=== PATIENT | male | born 1955 | race Caucasian/White ===

== ENCOUNTER 2021-03-28 09:35 | Outpatient (CLI) | payer MEDICARE, SELFPAY ==
--- NOTE | ~2021-03-28 | CT_ITS ---
EXAMINATION: CT lung screening DATE: 03/28/2021 10:00 INDICATION: Personal history of tobacco dependence, current smoker with 100 pack year history TECHNIQUE: Computed tomography (CT) of the chest was performed without intravenous contrast. The dose -length product (DLP) was 118.44 mGy-cm. Automated exposure control and iterative reconstruction tech [employer] were employed. COMPARISON: None FINDINGS: There is mild emphysema. There is a 3 mm nodule of the right lung apex. The lungs are free of acute opacities. There is no pleural effusion or pneumothorax. Calcified pulmonary nodules and anu cified bilateral hilar lymph nodes are consistent with old granulomatous disease. No pathologically e nlarged thoracic lymph nodes are identified. The heart size is normal. Cholelithiasis is noted. There is moderate thoracic spondylosis. IMPRESSION: 1. Lung-RADS category 2: Benign appearance or behavior. Continue annual screening with noncontrast lo w-dose chest CT in 12 months. Reviewed, dictated and finalized at location A. IMPRESSION: 1. Lung-RADS category 2: Benign appearance or behavior. Continue annual screeni ng with noncontrast low-dose chest CT in 12 months.
== END 2021-03-28 09:36 | disposition home or self-care (01) ==
LOC: CHSIMG 09:38
PROVIDERS: PCP Family Medicine; Visit Provider Family Medicine
DX: Z12.2 Encounter for screening for malignant neoplasm of respiratory organs (principal); Z87.891 Personal history of nicotine dependence
CPT/HCPCS: 71271

== ENCOUNTER 2021-11-17 09:02 | Observation (INO) | payer MEDICARE, SELFPAY ==
--- NOTE | ~2021-11-17 | XR_ITS ---
EXAMINATION: XR chest 1V portable DATE: 11/17/2021 11:23 INDICATION: Atrial fibrillation. TECHNIQUE: A single frontal view of the chest was obtained on 2 radiographs. COMPARISON: Chest CT 03/28/2021 FINDINGS: The chest demonstrates clear lungs without pneumonia, pleural effusion, or pneumothorax. Th e heart size is normal. An electronic device overlies the left chest. IMPRESSION: 1. No acute cardiopulmonary disease. Reviewed, dictated and finalized at location A.
[2021-11-17 09:28] VITALS: BP 145/47; PULSE 68; RESP 20; TEMP 36.7; O2SAT 98
--- NOTE | 2021-11-17 09:31 | ECG_ITS ---
Measurements Intervals [place] Rate: 69 P: 33 MT: 129 QRS: -32 QRSD: 89 T: 110 QT: 456 QTc: 491 Interpretive Statements SINUS RHYTHM WITH SINUS ARRHYTHMIA LEFT AXIS DEVIATION [QRS AXIS < -30] MODERATE ST AND T-WAVE ABNORMALITY, CONSIDER ANTEROLATERAL ISCHEMIA [-0.1+ mV T-WAVE IN V3-V6] ABNORMAL ECG NO PREVIOUS ECG AVAILABLE FOR COMPARISON Electronically Signed On 11-17-2021 12:18:31 CDT by Cuate Rivers M.D.
--- NOTE | 2021-11-17 09:34 | ED.WEAKNESS ---
HPI - Weakness General Chief complaint: Weakness Stated complaint: loss of appetite, nausea, vomiting Time Seen by Provider: 11/17/21 09:34 Source: patient and family Mode of arrival: ambulatory History of Present Illness HPI Narrative: this is a 66 with history recent CVA with right-sided hemiparesis was recently discharged from rehab on November 12 of this year, the patient during his stay was apparently having a decreased appetite secondary to altered taste to food, and currently has had some nausea vomiting, patient with history of depression/diabetes. Currently there is no fever chills he denies any chest pain or shortness of breath no dysuria or hematuria no flank pain your MD Complaint: generalized weakness Onset (ago): day(s) Duration: constant Severity: mild Associated symptoms: nausea/vomiting Related Data Allergies Allergy/AdvReac Type Severity Reaction Status Date / Time No Known Allergies Allergy Verified 11/17/21 09:42 Review of Systems Review of Systems: All systems reviewed & are unremarkable except as noted in HPI and below 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 Patient was independent prior to this admit Smoking status: Heavy tobacco smoker Additional smoking assessment comments: quit after stroke Exam Const: General: no acute distress Orientation/consciousness: patient oriented x3 HENMT: Head: normal to inspection Eyes: Conjunctivae: conjunctivae normal Pupils: Equal, round and reactive pupils present EOM: EOMs intact bilaterally Direct Ophthalmoscopy: no photophobia Neck: Neck: normal visual inspection, no lymphadenopathy and no meningeal signs Chest: Chest palpation & inspection: normal inspection of the chest Resp: Effort & Inspection: normal respiratory effort Auscultation: clear to auscultation bilaterally Cardio: Rate: regular rate Rhythm: regular rhythm GI: GI Palp: Yes Soft to palpation Percussion: Yes normal to percussion Urinary Catheter: Urinary Catheter: patent and draining Back/Spine/Pelvis: Back: no CVA tenderness Skin: General skin exam: normal color Rashes: no rashes Neuro: General: patient oriented x3 and no meningeal signs Speech: normal speech Other: right-sided hemiparesis Psych: Mental Status: mental status grossly normal Affect: normal affect Course Course Emergency Course: here today for a decreased appetite patient states that he has had this decreased appetite since he was in neuro rehab, has few episodes of nausea with some some vomiting currently labs reviewed with patient and family, received IV access and receive IV Zofran and his appetite has improved. after review of his CMP his creatinine had increased from 1.5 to 2.48 and serum sodium currently is 132. Discuss this with family and advised admission for observation. Family was in agreement. Critical Care Time Critical Care Time Critical Care Time: No Discharge Plan Discharge Clinical Impression: Acute hyponatremia, Acute kidney injury superimposed on chronic kidney disease Patient Disposition: [facility] Additional Instructions: disposition acute hospital Impression hyponatremia /acute on chronic renal failure condition guarded Prescriptions: No Action atorvastatin 80 mg Tablet 80 mg PO HS Qty: 30 RF: 0 aspirin [Children's Aspirin] 81 mg Tablet,Chewable 81 mg PO DAILY@0800 Qty: 0 RF: 0 bumetanide 1 mg Tablet 1 mg PO BID Qty: 60 RF: 0 carvedilol [Coreg] 12.5 mg Tablet 12.5 mg PO Q12HR Qty: 60 RF: 0 clopidogrel 75 mg Tablet 75 mg PO QAM Qty: 30 RF: 0 hydralazine 50 mg Tablet 50 mg PO Q8HR Qty:
[2021-11-17] MEDS: ONDANSETRON INJ 4 MG/2 ML VIAL IV PUSH (09:53)
[2021-11-17 09:57] LABS: Basophils Absolute Auto 0.08 K/mm3 (0.00-0.10); Basophils Percent Auto 0.6 % (0.0-1.0); Eosinophils Absolute Auto 0.09 K/mm3 (0.02-0.50); Eosinophils Percent Auto 0.7 % (1.0-6.0); Hematocrit 45.8 % (37.0-46.0); Hemoglobin 15.8 g/dL (12.4-15.3); Immature Granulocyte Absolute 0.07 K/mm3 (0.00-0.00); Immature Granulocyte Percent A 0.5 % (0.0-0.0); Lymphocytes Absolute Auto 1.84 K/mm3 (1.10-4.50); Mean Corpuscular HGB Conc 34.5 g/dL (32.0-36.0); Mean Corpuscular Hemoglobin 29.7 pg (27.0-31.0); Mean Corpuscular Volume 86.1 fL (78.0-102.0); Monocytes Absolute Auto 0.99 K/mm3 (0.10-0.90); Monocytes Percent Auto 7.6 % (2.0-11.0); Neutrophils Percent Auto 76.6 % (50.0-70.0); Platelet Count Result 452 K/mm3 (150-420); Red Blood Count 5.32 M/mm3 (4.70-6.10); Red Cell Distribution Width 12.4 % (11.6-14.4); White Blood Count 13.1 K/mm3 (4.8-10.8)
[2021-11-17 10:02] LABS: Add Urine Microscopic? YES; Appearance Urine Clear (Clear); Bilirubin Urine Negative (Negative); Blood Urine Negative (Negative); Color Urine Light Yellow (Yellow); Glucose Urine UA Negative (Negative); Ketones Urine Negative (Negative); Leukocyte Esterase Ur Trace (Negative); Nitrate Urine Negative (Negative); Protein Urine Negative (Negative); Urobilinogen Urine 0.2 mg/dL (0.2-1.0)
[2021-11-17 10:06] LABS: Bacteria Urine Trace /hpf; Mucus Urine Few /lpf; RBC Urine None seen /hpf (0-2); Squamous Epithelial Cell Urine Rare /hpf (Few); WBC Urine None seen /hpf (0-3)
[2021-11-17 10:16] LABS: Alanine Aminotransferase 44 U/L (16-63); Albumin Level 3.6 g/dL (3.4-5.0); Alkaline Phosphatase 69 U/L (46-116); Anion Gap 14 mmol/L (8-16); Aspartate Amino Transferase 34 U/L (15-37); Bilirubin,Total 0.7 mg/dL (0.00-1.00); Blood Urea Nitrogen 66 mg/dL (7-18); Calcium 9.2 mg/dL (8.5-10.1); Carbon Dioxide 23 mmol/L (21-32); Chloride 95 mmol/L (98-108); Estimated CRCL calculation 24 ml/min; Estimated Glomerular Filt Rate 26; Glucose 142 mg/dL (70-99); Lipase 215 U/L (73-393); Osmolality Calculated 295 mOsm/kg (285-295); Potassium 4.4 mmol/L (3.5-5.1); Sodium 132 mmol/L (136-145); Total Protein 7.5 g/dL (6.4-8.2)
[2021-11-17] MEDS: SODIUM CHLORIDE 0.9% IV 1,000 ML 150 ML IV CONT (10:54)
[2021-11-17 11:04] LABS: NT Pro B Type Natriuretic Pept 1103 pg/mL (0-125)
[2021-11-17 11:06] VITALS: BP 154/54; PULSE 63; RESP 20; TEMP 36.7; O2SAT 96
--- NOTE | 2021-11-17 11:11 | PC.NURSE ---
1100 PTS IV IS IN LEFT UPPER FOREARM 20G
[2021-11-17 11:35] VITALS: BP 149/53; PULSE 67; RESP 16; TEMP 36.7; O2SAT 97
[2021-11-17 11:52] VITALS: BMI 25.5
[2021-11-17 12:46] LABS: Glucose Point of Care 141 mg/dl (65-105)
--- NOTE | 2021-11-17 13:20 | PC.NURSE ---
Addendum entered by Arelis Burton RN 11/17/21 13:23: Patient arrived on unit at 1125 Original Note: Patient arrived to unit via w/c accompanied by his and ER staff. Admitted to room 209 for observation related to weakness and abnormal labs. Patient educated on hospital environment and use of call light. Patient advised to call for assistance before ambulation. Patient A/O and voiced understanding.
--- NOTE | 2021-11-17 13:41 | PCPTNOTE ---
11/17/21 - no current PT POC needed. DC from services this date. will re-evaluate for a status change if this occurs prior to DC.
[2021-11-17] MEDS: hydrALAZINE HCL 25 MG TABLET 50 MG PO ×2 (13:43→22:03)
[2021-11-17] MEDS: ISOSORBIDE DINITRATE 20 MG TABLET PO ×2 (13:43→17:11)
[2021-11-17 16:00] VITALS: BP 134/55; PULSE 76; RESP 15; TEMP 36.6; O2SAT 94
[2021-11-17 17:05] LABS: Glucose Point of Care 91 mg/dl (65-105)
[2021-11-17] MEDS: ATORVASTATIN 40 MG TABLET 80 MG PO (21:04)
[2021-11-17 21:05] VITALS: PULSE 75
[2021-11-17] MEDS: carvediloL 12.5 MG TABLET PO (21:05)
[2021-11-17 21:17] LABS: Glucose Point of Care 123 mg/dl (65-105)
[2021-11-18] VITALS: BP 142/55; PULSE 71; RESP 14; TEMP 36.8; O2SAT 95
[2021-11-18 05:19] LABS: Hemoglobin 14.6 g/dL (12.4-15.3); Mean Corpuscular HGB Conc 34.8 g/dL (32.0-36.0); Mean Corpuscular Volume 86.4 fL (78.0-102.0); Mean Platelet Volume 10.5 fl (8.7-11.0); Platelet Count Result 337 K/mm3 (150-420); Red Blood Count 4.86 M/mm3 (4.70-6.10); Red Cell Distribution Width 12.4 % (11.6-14.4); White Blood Count 11.7 K/mm3 (4.8-10.8)
[2021-11-18 05:44] LABS: Alanine Aminotransferase 39 U/L (16-63); Albumin Level 3.2 g/dL (3.4-5.0); Alkaline Phosphatase 60 U/L (46-116); Anion Gap 9 mmol/L (8-16); Aspartate Amino Transferase 30 U/L (15-37); Bilirubin,Total 0.5 mg/dL (0.00-1.00); Blood Urea Nitrogen 57 mg/dL (7-18); Calcium 8.8 mg/dL (8.5-10.1); Carbon Dioxide 26 mmol/L (21-32); Chloride 100 mmol/L (98-108); Estimated CRCL calculation 28 ml/min; Estimated Glomerular Filt Rate 32; Glucose 117 mg/dL (70-99); Osmolality Calculated 296 mOsm/kg (285-295); Potassium 3.7 mmol/L (3.5-5.1); Sodium 135 mmol/L (136-145); Total Protein 6.7 g/dL (6.4-8.2)
[2021-11-18] MEDS: hydrALAZINE HCL 25 MG TABLET 50 MG PO (06:19)
[2021-11-18 07:29] LABS: Glucose Point of Care 118 mg/dl (65-105)
[2021-11-18 08:00] VITALS: BP 152/60; PULSE 67; RESP 16; TEMP 36.5; O2SAT 94
[2021-11-18] MEDS: PIOGLITAZONE HCL 15 MG TAB 30 MG PO (08:14)
[2021-11-18] MEDS: ASPIRIN 81 MG CHEWABLE TABLET PO (08:14)
[2021-11-18] MEDS: SERTRALINE HCL 50 MG TABLET 100 MG PO (08:15)
[2021-11-18 08:16] VITALS: PULSE 80
[2021-11-18] MEDS: CLOPIDOGREL BISULFATE 75 MG TABLET PO (08:16)
[2021-11-18] MEDS: POTASSIUM CHLORIDE 20 MEQ TABLET 40 MEQ PO (08:16)
[2021-11-18] MEDS: carvediloL 12.5 MG TABLET PO (08:16)
[2021-11-18] MEDS: ISOSORBIDE DINITRATE 20 MG TABLET PO (08:17)
[2021-11-18] MEDS: ENOXAPARIN 30 MG/0.3 ML SYRINGE SUB-Q (08:17)
--- NOTE | 2021-11-18 09:40 | PM.SD2 ---
Same Day Admit/Disch: HPI History of Present Illness Chief complaint: HYPONATREMIA CHRONIC RENAL FAILURE Narrative: Nils Seay is a 66 year old male that presented to urgent care with complaints of decreased appetite, and difficulty swallowing. Patient has a past medical history of hyperlipidemia, hypertension, pneumonia, pulmonary edema, tobacco dependence, type 2 diabetes in a recent CVA. Patient notes that he has been placed on several medications and has decreased due to a metallic taste in his mouth. His did notify his primary care physician he is unaware of the results from that. Patient labs indicate acute kidney injury all other labs and imaging unremarkable, EKG sinus rhythm with a heart rate of 69. Patient was be admitted for hydration with PT OT and speech eval. Evaluation completed by speech therapy no deficiency PT OT no outpatient therapy indicated. Patient will discharge home with Megace to increase his appetite along with Zofran to prevent nausea and vomiting, pantoprazole for acid reflux PT as outpatient. Patient instructed to follow-up with his primary care physician to evaluate his medication to determine if one of the medication is causing a metallic taste in his mouth. The patient denies SOB, CP, palpitation, extremity numbness, lightheadedness, dizziness, constipation, diarrhea, chills, or fever. 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 Patient was independent prior to this admit Smoking packs per day: 2 Smoking cigarettes per day: 40.0 Years smoked: 30 Smoking pack-years: 60.00 Smoking status: Former smoker Tobacco type: cigarettes Second hand tobacco smoke exposure: Yes Smoking end date: 10/30/21 Additional smoking assessment comments: quit after stroke Alcohol intake: former Drinks per week: 1 Substance use type: does not use Spiritual care concerns: No Same Day Admit/Disch: Med Pre-admit Medications Home Medications Medication Instructions Recorded Confirmed Type Januvia 100 mg PO QAM #30 tablet 11/13/21 11/17/21 Rx aspirin [Children's Aspirin] 81 mg PO DAILY@0800 #0 tablet 11/13/21 11/17/21 Rx atorvastatin 80 mg PO HS #30 tablet 11/13/21 11/17/21 Rx bumetanide 1 mg PO BID #60 tablet 11/13/21 11/17/21 Rx carvedilol [Coreg] 12.5 mg PO Q12HR #60 tablet 11/13/21 11/17/21 Rx clopidogrel 75 mg PO QAM #30 tablet 11/13/21 11/17/21 Rx hydralazine 50 mg PO Q8HR #90 tablet 11/13/21 11/17/21 Rx isosorbide dinitrate 20 mg PO TID #90 tablet 11/13/21 11/17/21 Rx metformin 500 mg PO BIDWMEAL #60 tablet 11/13/21 11/17/21 Rx pioglitazone [Actos] 30 mg PO QAM #30 tablet 11/13/21 11/17/21 Rx potassium chloride [K-Tab] 40 meq PO DAILY #30 tablet 11/13/21 11/17/21 Rx sertraline [Zoloft] 100 mg PO QAM #30 tablet 11/13/21 11/17/21 Rx megestrol 625 mg PO DAILY #150 ml 11/18/21 Rx ondansetron 4 mg PO Q6H PRN #30 tablet 11/18/21 Rx pantoprazole 20 mg PO HS 28 Days #28 tablet 11/18/21 Rx Exam Narrative: GENERAL: This is a well-nourished, well-developed patient, in no apparent distress. HEAD: normocephalic, atraumatic. EYES: PERRL. Sclera clear/white. Vision is grossly intact. EARS: External ears normal, auditory canals clear and without drainage, TMs normal without perforation. Hearing grossly intact. NOSE: External nose normal with no obvious nasal discharge, nares without redness, no rhinorrhea. THROAT: Mucous membranes moist, posterior pharynx clear. NECK: Neck supple, non-tender without lymphadenopathy, masses or thyromegaly. CARDIOVASCULAR: Regular rate and rhythm without murmurs, gallops, or rubs. RESPIRATORY: Clear to auscultation. Breath sounds equal bi
[2021-11-18 11:41] LABS: Glucose Point of Care 182 mg/dl (65-105)
--- NOTE | 2021-11-18 12:34 | PC.NURSE ---
Patient discharged to home and accompanied by typewriter ribbon winder and his to marian. Discharge instructions given to patient and his . Both verbalized understanding. Personal belongings sent home with patient. Patient left via personal vehicle.
--- NOTE | 2021-11-20 10:14 | PC.NURSE ---
Pt states he received and understood his discharge instructions. Pt has no other comments.
== END 2021-11-18 12:15 | disposition home or self-care (01) ==
LOC: CHSED 10:39 → CHS2ND 10:56
PROVIDERS: Nurse Practitioner; Admitting Provider Internal Medicine; Emergency Provider Emergency Medicine; PCP Family Medicine; Visit Provider Internal Medicine
DX: R63.0 Anorexia (principal); E87.1 Hypo-osmolality and hyponatremia; N17.9 Acute kidney failure, unspecified; I13.0 Hypertensive heart and chronic kidney disease with heart failure and stage 1 through stage 4 chronic kidney disease, or unspecified chronic kidney disease; I50.21 Acute systolic (congestive) heart failure; N18.9 Chronic kidney disease, unspecified; E11.22 Type 2 diabetes mellitus with diabetic chronic kidney disease; I69.354 Hemiplegia and hemiparesis following cerebral infarction affecting left non-dominant side; E78.5 Hyperlipidemia, unspecified; Z87.891 Personal history of nicotine dependence; Z79.899 Other long term (current) drug therapy
CPT/HCPCS: 36415; 71045; 80053; 81001; 82948; 83690; 83880; 85025; 85027; 87040; 87086; 92610; 93005; 96361; 96372; 96374; 97161; 97165; 99285; A9270; G0378; J1650; J2405; J7030

== ENCOUNTER 2021-11-21 07:51 | Outpatient (CLI) | payer MEDICARE, SELFPAY ==
[2021-11-21 09:09] LABS: Alanine Aminotransferase 49 U/L (16-63); Albumin Level 3.7 g/dL (3.4-5.0); Alkaline Phosphatase 73 U/L (46-116); Anion Gap 6 mmol/L (8-16); Aspartate Amino Transferase 39 U/L (15-37); Bilirubin,Total 0.6 mg/dL (0.00-1.00); Blood Urea Nitrogen 39 mg/dL (7-18); Calcium 9.2 mg/dL (8.5-10.1); Carbon Dioxide 30 mmol/L (21-32); Chloride 101 mmol/L (98-108); Estimated Glomerular Filt Rate 31; Glucose 142 mg/dL (70-99); Osmolality Calculated 295 mOsm/kg (285-295); Potassium 4.2 mmol/L (3.5-5.1); Sodium 137 mmol/L (136-145); Total Protein 6.8 g/dL (6.4-8.2)
[2021-11-21 16:14] LABS: Prostate Specific Antigen 7.1 ng/mL (< OR = 4.0)
== END 2021-11-21 07:52 | disposition home or self-care (01) ==
PROVIDERS: PCP Family Medicine; Visit Provider Nurse Practitioner
DX: N18.1 Chronic kidney disease, stage 1 (principal); Z12.5 Encounter for screening for malignant neoplasm of prostate
CPT/HCPCS: 36415; 80053; 84153; G0103

== ENCOUNTER 2021-11-28 11:53 | Outpatient (CLI) | payer MEDICARE, SELFPAY ==
[2021-11-28 12:11] LABS: Basophils Absolute Auto 0.04 K/mm3 (0.00-0.10); Basophils Percent Auto 0.5 % (0.0-1.0); Eosinophils Absolute Auto 0.21 K/mm3 (0.02-0.50); Eosinophils Percent Auto 2.6 % (1.0-6.0); Hematocrit 41.3 % (37.0-46.0); Hemoglobin 13.4 g/dL (12.4-15.3); Immature Granulocyte Absolute 0.02 K/mm3 (0.00-0.00); Immature Granulocyte Percent A 0.2 % (0.0-0.0); Lymphocytes Percent Auto 19.9 % (18.0-42.0); Mean Corpuscular HGB Conc 32.4 g/dL (32.0-36.0); Mean Corpuscular Hemoglobin 29.3 pg (27.0-31.0); Mean Corpuscular Volume 90.2 fL (78.0-102.0); Mean Platelet Volume 10.5 fl (8.7-11.0); Monocytes Absolute Auto 0.99 K/mm3 (0.10-0.90); Monocytes Percent Auto 12.3 % (2.0-11.0); Neutrophils Absolute Auto 5.2 K/mm3 (1.7-7.2); Neutrophils Percent Auto 64.5 % (50.0-70.0); Platelet Count Result 264 K/mm3 (150-420); Red Blood Count 4.58 M/mm3 (4.70-6.10)
[2021-11-28 12:51] LABS: Alanine Aminotransferase 45 U/L (16-63); Albumin Level 3.6 g/dL (3.4-5.0); Alkaline Phosphatase 83 U/L (46-116); Anion Gap 5 mmol/L (8-16); Aspartate Amino Transferase 32 U/L (15-37); Bilirubin,Total 0.5 mg/dL (0.00-1.00); Blood Urea Nitrogen 33 mg/dL (7-18); Calcium 9.4 mg/dL (8.5-10.1); Carbon Dioxide 32 mmol/L (21-32); Chloride 103 mmol/L (98-108); Estimated Glomerular Filt Rate 36; Glucose 158 mg/dL (70-99); Osmolality Calculated 300 mOsm/kg (285-295); Potassium 4.4 mmol/L (3.5-5.1); Sodium 140 mmol/L (136-145); Total Protein 6.8 g/dL (6.4-8.2)
== END 2021-11-28 11:54 | disposition home or self-care (01) ==
PROVIDERS: PCP Family Medicine
DX: I42.9 Cardiomyopathy, unspecified (principal); I65.21 Occlusion and stenosis of right carotid artery; I10 Essential (primary) hypertension; E78.2 Mixed hyperlipidemia
CPT/HCPCS: 36415; 80053; 85025

== ENCOUNTER 2021-12-19 11:29 | Outpatient (CLI) | payer MEDICARE, SELFPAY ==
[2021-12-19 12:08] LABS: Anion Gap 7 mmol/L (8-16); Blood Urea Nitrogen 17 mg/dL (7-18); Calcium 9.1 mg/dL (8.5-10.1); Carbon Dioxide 29 mmol/L (21-32); Chloride 106 mmol/L (98-108); Estimated Glomerular Filt Rate 51; Glucose 134 mg/dL (70-99); Osmolality Calculated 297 mOsm/kg (285-295); Potassium 4.3 mmol/L (3.5-5.1); Sodium 142 mmol/L (136-145)
== END 2021-12-19 11:30 | disposition home or self-care (01) ==
LOC: CHSLAB 11:31
PROVIDERS: PCP Family Medicine; Visit Provider Family Medicine
DX: N18.32 Chronic kidney disease, stage 3b (principal)
CPT/HCPCS: 36415; 80048

== ENCOUNTER 2022-01-08 14:06 | Outpatient (CLI) | payer MEDICARE, SELFPAY ==
[2022-01-09 19:09] LABS: Prostate Specific Antigen 5.3 ng/mL (< OR = 4.0)
== END 2022-01-08 14:07 | disposition home or self-care (01) ==
LOC: CHSLAB 14:09
PROVIDERS: PCP Family Medicine; Visit Provider Urology
DX: R97.20 Elevated prostate specific antigen [PSA] (principal)
CPT/HCPCS: 36415; 84153

== ENCOUNTER 2022-01-27 10:00 | Outpatient (RCR) | payer MEDICARE, MEDICAID, SELFPAY ==
--- NOTE | 2021-12-08 15:13 | OTOPEVAL ---
Thank you for referring Nils Seay to [facility].? The patient is scheduled to be seen for therapy? ____x/week for ___ weeks. Please review, sign, date and return this plan of care LEOPOLDO. I agree with and certify that the following plan of care is medically necessary. Referring Physician Date Admitting Provider: Attending Provider: Cheikh Yusuf MD Referring Provider: *OT Outpatient Evaluation Start: 12/08/21 11:20 Freq: Status: Active Protocol: Document 12/08/21 13:55 [facility] [place]Rec: 12/08/21 15:12 [id number] Therapy Assessment Status Assessment Status Assessment Status Evaluation Outpatient Past Medical History Neurological History Hx Cerebrovascular Accident (CVA) Yes Cardiovascular History Hx Hypercholesterolemia Yes Hx Hypertension Yes Respiratory History Hx Pneumonia Yes Gastrointestinal History Hx Gastrointestinal Disorders No Significant History Genitourinary History Hx Genitourinary Disorders No Significant History Musculoskeletal History Hx Musculoskeletal Disorders No Significant History Hematological History Hx Hematological Disorders No Significant History Endocrine History Hx Diabetes Yes HEENT History Hx HEENT Disorders No Significant History Integumentary History Hx Skin Disorders No Significant History Reproductive History Hx Reproductive Disorders No Significant History Psychosocial History Hx Depression Yes Pain History History of Any Previous or Ongoing No Significant History Instance of Pain Anesthesia History Hx Anesthesia Reactions No Significant History Other History Hx Other Surgeries Yes Evaluation Information Problem Diagnosis R hand weakness, ataxia Onset 10/30/21 Cause CVA Subjective Information Patient arrives to OT with his Query Text:As Reported By Patient/ spouse and reports the Family following: they report that things are going well overall. Patient had a stroke on 10/30 and attended inpatient rehab for ~ 5 days. The CVA primarily affected his R hand and some word finding/memory difficulties. Patient reports that he is able to do more with his R hand but still not able to do everything that he wants to do. Prior to CVA patient was independent with all ADLs, IADLs, functional
--- NOTE | 2021-12-08 15:20 | OTOPEVAL ---
Thank you for referring Nils Seay to [facility].? The patient is scheduled to be seen for therapy? ____x/week for ___ weeks. Please review, sign, date and return this plan of care LEOPOLDO. I agree with and certify that the following plan of care is medically necessary. Referring Physician Date Admitting Provider: Attending Provider: Cheikh Yusuf MD Referring Provider: *OT Outpatient Evaluation Start: 12/08/21 11:20 Freq: Status: Active Protocol: Document 12/08/21 13:55 [facility] [place]Rec: 12/08/21 15:12 [id number] Therapy Assessment Status Assessment Status Assessment Status Evaluation Outpatient Past Medical History Neurological History Hx Cerebrovascular Accident (CVA) Yes Cardiovascular History Hx Hypercholesterolemia Yes Hx Hypertension Yes Respiratory History Hx Pneumonia Yes Gastrointestinal History Hx Gastrointestinal Disorders No Significant History Genitourinary History Hx Genitourinary Disorders No Significant History Musculoskeletal History Hx Musculoskeletal Disorders No Significant History Hematological History Hx Hematological Disorders No Significant History Endocrine History Hx Diabetes Yes HEENT History Hx HEENT Disorders No Significant History Integumentary History Hx Skin Disorders No Significant History Reproductive History Hx Reproductive Disorders No Significant History Psychosocial History Hx Depression Yes Pain History History of Any Previous or Ongoing No Significant History Instance of Pain Anesthesia History Hx Anesthesia Reactions No Significant History Other History Hx Other Surgeries Yes Evaluation Information Problem Diagnosis R hand weakness, ataxia Onset 10/30/21 Cause CVA Subjective Information Patient arrives to OT with his Query Text:As Reported By Patient/ spouse and reports the Family following: they report that things are going well overall. Patient had a stroke on 10/30 and attended inpatient rehab for ~ 5 days. The CVA primarily affected his R hand and some word finding/memory difficulties. Patient reports that he is able to do more with his R hand but still not able to do everything that he wants to do. Prior to CVA patient was independent with all ADLs, IADLs, functional
--- NOTE | 2022-01-13 14:02 | OTOPEVAL ---
Thank you for referring Nils Seay to [facility].? The patient is scheduled to be seen for therapy? ____x/week for ___ weeks. Please review, sign, date and return this plan of care LEOPOLDO. I agree with and certify that the following plan of care is medically necessary. Referring Physician Date Admitting Provider: Attending Provider: Cheikh Yusuf MD Referring Provider: *OT Outpatient Evaluation Start: 12/08/21 11:20 Freq: Status: Active Protocol: Document 01/13/22 13:05 [facility] (Rec: 01/13/22 14:01 [facility] [id number]) Therapy Assessment Status Assessment Status Assessment Status Progress Outpatient Past Medical History Neurological History Hx Cerebrovascular Accident (CVA) Yes Cardiovascular History Hx Hypercholesterolemia Yes Hx Hypertension Yes Respiratory History Hx Pneumonia Yes Gastrointestinal History Hx Gastrointestinal Disorders No Significant History Genitourinary History Hx Genitourinary Disorders No Significant History Musculoskeletal History Hx Musculoskeletal Disorders No Significant History Hematological History Hx Hematological Disorders No Significant History Endocrine History Hx Diabetes Yes HEENT History Hx HEENT Disorders No Significant History Integumentary History Hx Skin Disorders No Significant History Reproductive History Hx Reproductive Disorders No Significant History Psychosocial History Hx Depression Yes Pain History History of Any Previous or Ongoing No Significant History Instance of Pain Anesthesia History Hx Anesthesia Reactions No Significant History Other History Hx Other Surgeries Yes Evaluation Information Problem Subjective Information Patient reports that he is Query Text:As Reported By Patient/ able to oppose the R thumb to Family index finger however still struggles with grasping skills and is unable to pick things up. Patient is completely independent with all ADLs at this time. Patient is using built up utensil for self feeding. Patient reports that his R hand has been painful the last couple of days so he rested from home programming and it seems to be doing better. Pain Assessment Timing of Pain Assessment Timing of Pain Assessment Re-assessment Self Report Self Report Pain Level 0 Pain Score Pain Score 0: Self Report Upper Extremity Range of [place]
--- NOTE | 2022-01-27 13:06 | STOPEVAL ---
Thank you for referring Nils Seay to [facility].? The patient is scheduled to be seen for therapy? 1x/week for 10 sessions. Please review, sign, date and return this plan of care LEOPOLDO. I agree with and certify that the following plan of care is medically necessary. Referring Physician Date Admitting Provider: Attending Provider: Cheikh Yusuf MD Referring Provider: SPEECH THERAPY *ST Outpatient Evaluation Start: 01/27/22 11:43 Freq: Status: Active Protocol: Document 01/27/22 10:00 [facility] (Rec: 01/27/22 13:05 [facility] [id number]) Therapy Assessment Status Assessment Status Assessment Status Evaluation Outpatient Past Medical History Past Medical History Source of Past Medical History Patient,Family/Significant Other Neurological History Hx Cerebrovascular Accident (CVA) Yes: October 2021 Cardiovascular History Hx Hypercholesterolemia Yes Hx Hypertension Yes Respiratory History Hx Pneumonia Yes Gastrointestinal History Hx Gastrointestinal Disorders No Significant History Genitourinary History Hx Genitourinary Disorders No Significant History Musculoskeletal History Hx Musculoskeletal Disorders No Significant History Hematological History Hx Hematological Disorders No Significant History Endocrine History Hx Diabetes Yes HEENT History Hx HEENT Disorders No Significant History Integumentary History Hx Skin Disorders No Significant History Reproductive History Hx Reproductive Disorders No Significant History Psychosocial History Hx Depression Yes Pain History History of Any Previous or Ongoing No Significant History Instance of Pain Anesthesia History Hx Anesthesia Reactions No Significant History Other History Hx Other Surgeries Yes Pain Assessment Timing of Pain Assessment Timing of Pain Assessment Assessment Self Report Self Report Pain Level 0 Pain Score Pain Score 0: Self Report Cognitive Evaluation Attention Assessment Selective Attention Overall Attention Ability Mild Impairment Orientation/Memory Assessment Immediate Memory 80 Query Text:% Accuracy Recent Memory 70 Query Text:% Accuracy Remote Memory 100 Query Text:% Accuracy Prospective Memory 100 Query Text:% Accuracy Temporal Orientation 70 Query Text:% Accuracy Orientation/Memory Comments Patient presented with difficulty answering questions when relating to time. Problem Solving Simple Problem Solving: Percent of 100 Accuracy 0-100 (%)
--- NOTE | 2022-02-17 14:03 | OTOPEVAL ---
Thank you for referring Nils Seay to [facility].? The patient is scheduled to be seen for therapy? ____x/week for ___ weeks. Please review, sign, date and return this plan of care LEOPOLDO. I agree with and certify that the following plan of care is medically necessary. Referring Physician Date Admitting Provider: Attending Provider: Cheikh Yusuf MD Referring Provider: *OT Outpatient Evaluation Start: 12/08/21 11:20 Freq: Status: Active Protocol: Document 02/17/22 13:04 [facility] (Rec: 02/17/22 14:02 [facility] [id number]) Therapy Assessment Status Assessment Status Assessment Status Discharge Outpatient Past Medical History Past Medical History Source of Past Medical History Patient,Family/Significant Other Neurological History Hx Cerebrovascular Accident (CVA) Yes: October 2021 Cardiovascular History Hx Hypercholesterolemia Yes Hx Hypertension Yes Respiratory History Hx Pneumonia Yes Gastrointestinal History Hx Gastrointestinal Disorders No Significant History Genitourinary History Hx Genitourinary Disorders No Significant History Musculoskeletal History Hx Musculoskeletal Disorders No Significant History Hematological History Hx Hematological Disorders No Significant History Endocrine History Hx Diabetes Yes HEENT History Hx HEENT Disorders No Significant History Integumentary History Hx Skin Disorders No Significant History Reproductive History Hx Reproductive Disorders No Significant History Psychosocial History Hx Depression Yes Pain History History of Any Previous or Ongoing No Significant History Instance of Pain Anesthesia History Hx Anesthesia Reactions No Significant History Other History Hx Other Surgeries Yes Evaluation Information Problem Subjective Information Patient reports that things Query Text:As Reported By Patient/ are going ok at home. Family Patient states that he recently had a stress test and they found something wrong with his heart. He will be having a heart procedure later this month. Patient reports that he is independently performing all of his ADLs. Pain Assessment Timing of Pain Assessment Timing of Pain Assessment Re-assessment Self Report Self Report Pain Level 0 Pain Score Pain Score 0: Self Report Upper Extremity Range of Motion General Upper Extremity Range of Motion Gross Upper Extremity Range of Motion Patient is able to achieve 0 Comments degrees of R index finger PIP
--- NOTE | 2022-03-09 11:21 | PCSTNOTE ---
Admitting Provider: Attending Provider: Cheikh Yusuf MD Patient:Nils Seay Date of :1955 Patient has not returned for any further treatments since 02/19/2022, therefore he will be discharged at this time. Patient?s initial visit was on 01/27/2022 and he had a total of 3 visits. The goals have been partially met. Patient reported that he is going to potentially need surgery in the upcoming weeks and would like to save any potential ST services until after the surgery. Patient met goal for problem solving skills but continues to present with difficulty in short term memory, functional math, reading and organizational tasks. Education with patient regarding tasks to continue to target at home with response in understanding. Thank you for referring this patient to [facility]. Please review, sign, date and return this discharge summary LEOPOLDO. I have been updated about the patient's current status and I agree with discharge from the above service at this time. Referring Physician Date
== END 2022-02-19 23:59 | disposition home or self-care (01) ==
LOC: CHSST 10:00
PROVIDERS: PCP Family Medicine; Visit Provider Family Medicine
DX: R53.1 Weakness (principal); R27.0 Ataxia, unspecified; R47.89 Other speech disturbances
CPT/HCPCS: 92507; 96125; 97110; 97140; 97165; 97530; 97535

== ENCOUNTER 2022-03-02 14:43 | Outpatient (CLI) | payer MEDICARE, SELFPAY ==
[2022-03-02 14:59] LABS: Hematocrit 36.5 % (37.0-46.0); Hemoglobin 12.3 g/dL (12.4-15.3); Mean Corpuscular HGB Conc 33.7 g/dL (32.0-36.0); Mean Corpuscular Hemoglobin 30.2 pg (27.0-31.0); Mean Corpuscular Volume 89.7 fL (78.0-102.0); Mean Platelet Volume 10.3 fl (8.7-11.0); Platelet Count Result 194 K/mm3 (150-420); Red Blood Count 4.07 M/mm3 (4.70-6.10); Red Cell Distribution Width 12.6 % (11.6-14.4); White Blood Count 6.9 K/mm3 (4.8-10.8)
[2022-03-02 15:18] LABS: Anion Gap 8 mmol/L (8-16); Blood Urea Nitrogen 26 mg/dL (7-18); Carbon Dioxide 25 mmol/L (21-32); Chloride 102 mmol/L (98-108); Estimated Glomerular Filt Rate 38; Glucose 138 mg/dL (70-99); Osmolality Calculated 286 mOsm/kg (285-295); Potassium 4.6 mmol/L (3.5-5.1); Sodium 135 mmol/L (136-145)
[2022-03-02 18:38] LABS: Band Neutrophils Percent 0 % (0-6); Basophils Absolute Manual 0.06 K/mm3 (0-0.1); Basophils Percent Manual 1 % (0-1); Eosinophils Percent Manual 0 % (1-6); Lymphocytes Absolute Manual 0.75 K/mm3 (1.1-4.5); Lymphocytes Percent Manual 11 % (18-44); Monocytes Absolute Manual 1.38 K/mm3 (0.1-0.90); Monocytes Percent Manual 20 % (3-9); Neutrophils Absolute Manual 4.69 K/mm3 (1.3-6.7); Neutrophils Percent Manual 68 % (46-73); Platelet Estimate Adequate (Adequate)
== END 2022-03-02 14:44 | disposition home or self-care (01) ==
LOC: CHSLAB 14:46
PROVIDERS: PCP Family Medicine
DX: E78.2 Mixed hyperlipidemia (principal); I42.9 Cardiomyopathy, unspecified; R94.39 Abnormal result of other cardiovascular function study; Z01.818 Encounter for other preprocedural examination; I12.9 Hypertensive chronic kidney disease with stage 1 through stage 4 chronic kidney disease, or unspecified chronic kidney disease; N18.32 Chronic kidney disease, stage 3b
CPT/HCPCS: 36415; 80048; 85025

== ENCOUNTER 2022-08-20 14:00 | Outpatient (RCR) | payer MEDICARE, MEDICAID, SELFPAY ==
--- NOTE | 2022-07-13 15:13 | PTOPEVAL1 ---
Assessment and note entered by Jose De Jesus Lott Evaluation Information Assessment Status Evaluation Diagnosis right hemiparesis Onset 10/30/21 Subjective Information Pt. suffered a CVA in October. He reports that he did OT in November as well as ST. He states that he fell in February, resulting in brain bleed. Pt. is present and states that he was in the hospital for 3 1/2 weeks after the fall. He then went to a skilled rehab facility for 2 1/2 months. Pt. states that the pt. only received 3 weeks of rehab in [facility], and pt. pretty much sat the remaining weeks. He did 2 weeks of PT, and was discharged last week. Pt. and state that pt. has been a fall risk for awhile. She reports that she notices the pt. frequently leaning backwards. Pt. has been using a 4 ww since February. He states that his does have to help with dressing, grooming and bathing. He notices weakness and impaired balance with most activities. He reports that he was driving before the fall. Pt. and his state that his goal is to be able to walk without his walker. Reported Pain Level Pain Score 0: Self Report Assessment PT Clinical Summary Pt. is a 66 year old male who enters the clinic following hospitalization after fall. He presents with impaired balance, impaired gait, decreased l .e. strength, and functional decline. Continued treatment is indicated in order to improve these areas to allow the pt. to be able to complete all IADL's with improved safety and efficiency. Plan of Care Interventions Gait Training,Manual Therapy,Patient/Caregiver Educati,Therapeutic Activities,Therapeutic Exercise,Self-Care/Home Management PT Services Indicated Yes Treatment Frequency and 2x/week x 10 visits Duration These treatments will address the objective and functional deficits as defined above. The patient will be advanced safely and appropriately in order for the patient to progress towards his/her prior level of function. Additional exercises will be introduced and as well as a comprehensive home exercise program upon discharge, if needed, ?to ensure carryover of functional gains achieved in the clinic. This treatment plan has been reviewed and agreement upon by the patient.
--- NOTE | 2022-07-14 15:13 | BUOTOPEVAL ---
Assessment and note entered by Rahel Fortune OT Evaluation Information Assessment Status Evaluation Diagnosis Hemiparesis of dominant side due to CVA Onset February 2022 Subjective Information The patient's stated that he has had a difficult time with bathing and fasteners on clothing. Reported Pain Level Pain Score 0: Self Report Assessment OT Clinical Summary The patient is a 66 year old male who was referred to outpatient OT due to hemiplegia resulting in dominant sided weakness in fruit washer/pinch strength, decreased fine motor coordination, and inability to bathe self and perform clothing fasteners to maximize independence. The patient previously was independent with all self care tasks, demonstrating WNL fruit washer/pinch strength and fine motor coordination. The patient requires skilled OT to address current deficits and return to prior level of independence. Plan of Care Interventions Therapeutic Exercise,Manual Therapy,Neuro Re- education,Therapeutic Activities,Hot Pack/Cold Pack,Electrical Stimulation,Self-Care/Home Management,Ultrasound OT Services Indicated Yes Treatment Frequency and 1x/week for 10 visits. Duration These treatments will address the objective and functional deficits as defined above. The patient will be advanced safely and appropriately in order for the patient to progress towards his/her prior level of function. Additional exercises will be introduced and as well as a comprehensive home exercise program upon discharge, if needed, ?to ensure carryover of functional gains achieved in the clinic. This treatment plan has been reviewed and agreement upon by the patient.
--- NOTE | 2022-07-21 12:58 | STOPEVAL1 ---
Addendum entered by SERGIO Corea 07/30/22 11:20: Frequency modified to 2x/week for 10 sessions. 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 The patient' s reported that they have seen some improvements but continue to struggle with memory, time concepts (being disoriented when waking) and problem solving skills (leaving home without telling ). Reported Pain Level Pain Score 0: Self Report Pain Score 0: Self Report Pain Score 0: Self Report Assessment ST Clinical Summary Patient was referred by his physician for an ST evaluation due to recent CVA October of 2021 and fall with brain bleed in February of 2022. The patient and his reports that the patient has seen some improvements with his cognitive abilities but continues to struggle with short term memory, problem solving and functional organizational skills. The patient was given the SLUMS assessment which addresses cognitive skills with a score of 21/30 this date (mild neurocognitive disorder). The patient previously received a score of 18/30 on 07-01-22 (dementia). Informal cognitive testing for memory, problem solving, thought organization and retention skills was completed during the session. The patient presented with difficulties in; immediate memory, prospective memory, complex problem solving, through organization (sequencing) , sorting and categorization, functional math, and auditory processing (complex paragraphs). Speech therapy is recommended to target cognitive deficits CVA I69.319 to improve patient's ability to return to prior level of function as independent as possible. Recommendation for ST 1x/ week for 10 sessions. Plan of Care Interventions Treatment of Language,Treatment for Cognitive F ST Services Indicated Yes Treatment Frequency and 1x/week for 10 sessions Duration These treatments will address the objective and functional deficits as defined above. The patient will be advanced safely and appropriately in order for the patient to progress towards his
--- NOTE | 2022-08-13 10:01 | PCSTNOTE ---
Patient called & cancelled scheduled appointment this date due to inclement weather.
--- NOTE | 2022-09-03 16:40 | PCSTNOTE ---
Patient did not show up for scheduled appointment this date.
--- NOTE | 2022-10-08 10:46 | BUSTOPDC ---
Assessment and note entered by Bonnie Santo, MANAGER MATERIALS MANAGEMENT Evaluation Information Assessment Status Discharge - Pt Not Presen Assessment Clinical Summary Patient showed improvement in short term memory, problem solving, orientation skills, visual perceptual skills, organization and sequencing skills over the course of treatment. Patient attended a total of 6 treatment sessions and then stopped attending after the new year began. They reported that the patient's insurance was a problem once the new year started. Patient will be discharged from at this time due to stopping attendance.
--- NOTE | 2022-10-19 13:08 | PCPTNOTE ---
Mr. Seay attended a total of 9 treatment sessions. Treatment consisted of therapeutic exercise to address strength, therapeutic activities to improve functional mobility and neuromuscular re-education addressing balance. He was able to increase distance with ambulation, as reported in his final daily note. He has failed to return to the clinic and will be discharged from our care at this time.
== END 2022-08-20 19:00 | disposition home or self-care (01) ==
LOC: CHSST 14:00
DX: I69.319 Unspecified symptoms and signs involving cognitive functions following cerebral infarction (principal); I69.359 Hemiplegia and hemiparesis following cerebral infarction affecting unspecified side
CPT/HCPCS: 92507; 96125; 97110; 97112; 97140; 97161; 97165; 97530

== ENCOUNTER 2022-10-29 08:25 | Outpatient (CLI) | payer MEDICARE, MEDICAID, SELFPAY ==
[2022-10-29 09:05] LABS: Basophils Absolute Auto 0.04 K/mm3 (0.00-0.10); Basophils Percent Auto 0.4 % (0.0-1.0); Eosinophils Absolute Auto 0.18 K/mm3 (0.02-0.50); Eosinophils Percent Auto 1.8 % (1.0-6.0); Hematocrit 37.4 % (37.0-46.0); Hemoglobin 12.7 g/dL (12.4-15.3); Immature Granulocyte Absolute 0.02 K/mm3 (0.00-0.00); Immature Granulocyte Percent A 0.2 % (0.0-0.0); Lymphocytes Absolute Auto 2.38 K/mm3 (1.10-4.50); Lymphocytes Percent Auto 24.2 % (18.0-42.0); Mean Corpuscular Volume 88.4 fL (78.0-102.0); Mean Platelet Volume 10.5 fl (8.7-11.0); Monocytes Percent Auto 13.2 % (2.0-11.0); Neutrophils Absolute Auto 5.9 K/mm3 (1.7-7.2); Neutrophils Percent Auto 60.2 % (50.0-70.0); Platelet Count Result 211 K/mm3 (150-420); Red Blood Count 4.23 M/mm3 (4.70-6.10); Red Cell Distribution Width 13.2 % (11.6-14.4); White Blood Count 9.8 K/mm3 (4.8-10.8)
[2022-10-29 09:18] LABS: Hemoglobin A1C 6.1 % (<5.7)
[2022-10-29 09:48] LABS: Alanine Aminotransferase 38 U/L (16-63); Albumin Level 3.7 g/dL (3.4-5.0); Alkaline Phosphatase 80 U/L (46-116); Anion Gap 7 mmol/L (8-16); Aspartate Amino Transferase 27 U/L (15-37); Bilirubin,Total 0.3 mg/dL (0.00-1.00); Blood Urea Nitrogen 29 mg/dL (7-18); Carbon Dioxide 30 mmol/L (21-32); Chloride 108 mmol/L (98-108); Estimated Glomerular Filt Rate 44; Glucose 113 mg/dL (70-99); Osmolality Calculated 306 mOsm/kg (285-295); Potassium 4.4 mmol/L (3.5-5.1); Sodium 145 mmol/L (136-145); Total Protein 6.7 g/dL (6.4-8.2)
[2022-10-29 11:30] LABS: Appearance Urine Slightly Cloudy (Clear); Bilirubin Urine Negative (Negative); Blood Urine Negative (Negative); Color Urine Light Yellow (Yellow); Glucose Urine UA Negative (Negative); Ketones Urine Negative (Negative); Leukocyte Esterase Ur 2+ (Negative); Nitrate Urine Positive (Negative); Protein Urine Negative (Negative); Urobilinogen Urine 0.2 mg/dL (0.2-1.0)
[2022-10-29 11:34] LABS: Add Urine Microscopic? YES
[2022-10-29 11:35] LABS: Bacteria Urine 3+ /hpf; RBC Urine None seen /hpf (0-2); WBC Urine 31-50 /hpf (0-3)
[2022-10-29 11:36] LABS: Creatinine Urine 125.79 mg/dL (40-278); MALB Creatinine Ratio 17.5 mg/g (0-30); Microalbumin Urine Random 22.1 mg/L
== END 2022-10-29 08:26 | disposition home or self-care (01) ==
PROVIDERS: PCP Family Medicine; Visit Provider Family Medicine
DX: E11.9 Type 2 diabetes mellitus without complications (principal); N18.30 Chronic kidney disease, stage 3 unspecified; R60.9 Edema, unspecified
CPT/HCPCS: 36415; 80048; 80053; 81001; 82043; 83036; 84443; 85025

== ENCOUNTER 2022-11-05 13:21 | Outpatient (CLI) | payer MEDICARE, MEDICAID, SELFPAY ==
--- NOTE | ~2022-11-05 | US_ITS ---
EXAMINATION: US arterial ankle brachial ind DATE: 11/05/2022 14:02 INDICATION: Peripheral vascular disease TECHNIQUE: Segmental pressures and plethysmographic and Doppler waveforms of the brachial and lower e xtremity arteries were obtained. COMPARISON: None. FINDINGS: Right and left brachial artery pressures of 139 mm Hg and 140 mm Hg, respectively, are concordant (no rmal difference <= 30 mmHg). The right ankle-brachial index (ISMAEL) is 0.50 (normal >= 0.9-1.0). The right great toe-brachial index (TBI) is 0.36 (normal >= 0.65). Arterial Doppler waveforms are biphasic with brisk systolic upstrokes at both right posterior tibial and dorsalis pedis arteries. The left ISMAEL is 0.59. The left TBI is 0.46. Arterial Doppler waveforms are biphasic with brisk systol ic upstrokes at both left posterior tibial and dorsalis pedis arteries. IMPRESSION: 1. Arterial occlusive disease to the bilateral lower limbs with moderate to severely decreased right and moderately decreased left ABIs. Reviewed, dictated and finalized at location L. IMPRESSION: 1. Arterial occlusive disease to the bilateral lower limbs with moderate to sev erely decreased right and moderately decreased left ABIs.
== END 2022-11-05 13:22 | disposition home or self-care (01) ==
LOC: CHSIMG 13:22
PROVIDERS: PCP Family Medicine; Visit Provider Family Medicine
DX: I73.9 Peripheral vascular disease, unspecified (principal)
CPT/HCPCS: 93922

== ENCOUNTER 2023-05-14 14:57 | Outpatient (CLI) | payer MEDICARE, MEDICAID, SELFPAY ==
--- NOTE | ~2023-05-14 | XR_ITS ---
XR shoulder RT min 2V, XR humerus RT 05/14/2023 15:12 Indication: Right shoulder and arm pain after fall Procedure: 4 views right shoulder and 2 views right humerus Comparison: No prior studies for comparison. 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 No fracture or traumatic malalignment. No soft tissue abnormality. No foreign bodies. Impression: 1: No acute bone or joint abnormality. Reviewed, dictated and finalized at location A. Impression: 1: No acute bone or joint abnormality. Impression: 1: No acute bone or joint abnormality.
== END 2023-05-14 14:58 | disposition home or self-care (01) ==
LOC: CHSIMG 15:00
PROVIDERS: PCP Family Medicine; Visit Provider Family Medicine
DX: M25.511 Pain in right shoulder (principal); M79.601 Pain in right arm; W19.XXXA Unspecified fall, initial encounter
CPT/HCPCS: 73030; 73060

== ENCOUNTER 2023-07-19 14:33 | Outpatient (CLI) | payer MEDICARE, SELFPAY ==
[2023-07-19 15:03] LABS: Basophils Absolute Auto 0.04 K/mm3 (0.00-0.10); Basophils Percent Auto 0.4 % (0.0-1.0); Eosinophils Absolute Auto 0.11 K/mm3 (0.02-0.50); Hematocrit 38.8 % (37.0-46.0); Hemoglobin 13.2 g/dL (12.4-15.3); Immature Granulocyte Absolute 0.04 K/mm3 (0.00-0.00); Immature Granulocyte Percent A 0.4 % (0.0-0.0); Lymphocytes Absolute Auto 2.03 K/mm3 (1.10-4.50); Lymphocytes Percent Auto 19.3 % (18.0-42.0); Mean Corpuscular Hemoglobin 30.1 pg (27.0-31.0); Mean Corpuscular Volume 88.4 fL (78.0-102.0); Mean Platelet Volume 10.3 fl (8.7-11.0); Monocytes Absolute Auto 1.06 K/mm3 (0.10-0.90); Monocytes Percent Auto 10.1 % (2.0-11.0); Neutrophils Absolute Auto 7.2 K/mm3 (1.7-7.2); Neutrophils Percent Auto 68.8 % (50.0-70.0); Platelet Count Result 237 K/mm3 (150-420); Red Blood Count 4.39 M/mm3 (4.70-6.10); Red Cell Distribution Width 12.4 % (11.6-14.4); White Blood Count 10.5 K/mm3 (4.8-10.8)
[2023-07-19 15:04] LABS: Appearance Urine Clear (Clear); Bilirubin Urine Negative (Negative); Blood Urine Trace-Intact (Negative); Color Urine Light Yellow (Yellow); Glucose Urine UA Negative (Negative); Ketones Urine Negative (Negative); Leukocyte Esterase Ur Negative (Negative); Nitrate Urine Negative (Negative); Protein Urine Negative (Negative); Specific Grav Ur 1.015 (1.010-1.020); Urobilinogen Urine 0.2 mg/dL (0.2-1.0); pH Urine 5.5 (5.0-8.0)
[2023-07-19 15:23] LABS: Add Urine Microscopic? YES; Bacteria Urine None seen /hpf; RBC Urine 0-2 /hpf (0-2); Squamous Epithelial Cell Urine Rare /hpf (Few); WBC Urine None seen /hpf (0-3)
[2023-07-19 15:42] LABS: Alanine Aminotransferase 40 U/L (16-63); Albumin Level 3.8 g/dL (3.4-5.0); Alkaline Phosphatase 88 U/L (46-116); Anion Gap 8 mmol/L (8-16); Aspartate Amino Transferase 22 U/L (15-37); Bilirubin,Total 0.6 mg/dL (0.00-1.00); Blood Urea Nitrogen 24 mg/dL (7-18); Calcium 9.3 mg/dL (8.5-10.1); Carbon Dioxide 29 mmol/L (21-32); Chloride 104 mmol/L (98-108); Estimated Glomerular Filt Rate 44; Glucose 176 mg/dL (70-99); Osmolality Calculated 300 mOsm/kg (285-295); Potassium 4.3 mmol/L (3.5-5.1); Sodium 141 mmol/L (136-145); Total Protein 6.8 g/dL (6.4-8.2)
[2023-07-20 14:22] LABS: Hemoglobin A1C 7.8 % (<5.7)
== END 2023-07-19 14:34 | disposition home or self-care (01) ==
PROVIDERS: PCP Family Medicine; Visit Provider Family Medicine
DX: R30.0 Dysuria (principal); E11.9 Type 2 diabetes mellitus without complications
CPT/HCPCS: 36415; 80053; 81001; 83036; 85025; 87086

== ENCOUNTER 2023-08-31 14:13 | Outpatient (CLI) | payer MEDICARE, SELFPAY ==
--- NOTE | ~2023-08-31 | XR_ITS ---
XR chest 2V DATE: 08/31/2023 14:32 INDICATION: Acute upper respiratory infection TECHNIQUE: PA and lateral views COMPARISON: 11/17/2021 portable AP chest FINDINGS: Normal heart size. No hilar or mediastinal enlargement. No pulmonary infiltrate or consolid ation, pleural effusion or pulmonary vascular congestion or pneumothorax. IMPRESSION: No active cardiopulmonary disease Reviewed, dictated and finalized at location L. N BARREL FILLER
== END 2023-08-31 14:14 | disposition home or self-care (01) ==
LOC: CHSIMG 14:15
PROVIDERS: PCP Family Medicine; Visit Provider Family Medicine
DX: J06.9 Acute upper respiratory infection, unspecified (principal)
CPT/HCPCS: 71046

== ENCOUNTER 2023-12-23 14:23 | Outpatient (CLI) | payer MEDICARE, SELFPAY ==
[2023-12-23 15:02] LABS: Basophils Absolute Auto 0.03 K/mm3 (0.00-0.10); Basophils Percent Auto 0.3 % (0.0-1.0); Eosinophils Percent Auto 0.9 % (1.0-6.0); Hematocrit 43.5 % (37.0-46.0); Hemoglobin 14.4 g/dL (12.4-15.3); Immature Granulocyte Absolute 0.05 K/mm3 (0.00-0.00); Immature Granulocyte Percent A 0.5 % (0.0-0.0); Lymphocytes Absolute Auto 2.33 K/mm3 (1.10-4.50); Lymphocytes Percent Auto 21.2 % (18.0-42.0); Mean Corpuscular HGB Conc 33.1 g/dL (32-36); Mean Corpuscular Hemoglobin 29.3 pg (27.0-31.0); Mean Corpuscular Volume 88.6 fL (78.0-102.0); Mean Platelet Volume 9.9 fl (8.7-11.0); Monocytes Absolute Auto 0.88 K/mm3 (0.10-0.90); Neutrophils Absolute Auto 7.59 K/mm3 (1.70-7.20); Neutrophils Percent Auto 69.1 % (50.0-70.0); Platelet Count Result 234 K/mm3 (150-420); Red Blood Count 4.91 M/mm3 (4.70-6.10); Red Cell Distribution Width 12.5 % (11.6-14.4)
[2023-12-23 15:25] LABS: Partial Thromboplastin Time 25.4 Sec (23.9-30.70); Prothrombin Time 10.8 Seconds (9.50-12.1)
[2023-12-23 16:41] LABS: Alanine Aminotransferase 31 U/L (16-63); Alkaline Phosphatase 98 U/L (46-116); Anion Gap 8 mmol/L (4-12); Aspartate Amino Transferase 22 U/L (15-37); Bilirubin,Total 0.6 mg/dL (0.00-1.00); Blood Urea Nitrogen 18 mg/dL (7-18); Calcium 9.1 mg/dL (8.5-10.1); Carbon Dioxide 29 mmol/L (21-32); Chloride 104 mmol/L (98-108); Estimated Glomerular Filt Rate 45; Glucose 116 mg/dL (70-99); Osmolality Calculated 294 mOsm/kg (285-295); Potassium 4.4 mmol/L (3.5-5.1); Prostate Specific Antigen 1.8 ng/mL (< OR = 4.0); Sodium 141 mmol/L (136-145)
[2023-12-23 17:06] LABS: Appearance Urine Clear (Clear); Bilirubin Urine Negative (Negative); Blood Urine 1+ (Negative); Color Urine Light Yellow (Yellow); Glucose Urine UA 3+ (Negative); Ketones Urine Negative (Negative); Leukocyte Esterase Ur Negative (Negative); Nitrate Urine Negative (Negative); Protein Urine Negative (Negative); Specific Grav Ur 1.015 (1.010-1.020); Urobilinogen Urine 0.2 mg/dL (0.2-1.0)
[2023-12-23 17:22] LABS: Add Urine Microscopic? YES; Bacteria Urine 1+ /hpf; Squamous Epithelial Cell Urine None Seen /hpf (Few); WBC Urine 0-3 /hpf (0-3)
== END 2023-12-23 14:24 | disposition home or self-care (01) ==
LOC: CHSLAB 14:25
PROVIDERS: PCP Family Medicine; Visit Provider Family Medicine
DX: R31.9 Hematuria, unspecified (principal)
CPT/HCPCS: 36415; 80053; 81001; 84153; 85025; 85610; 85730; 88112

== ENCOUNTER 2024-04-01 08:19 | Outpatient (CLI) | payer MEDICARE, SELFPAY ==
--- NOTE | ~2024-04-01 | MR_ITS ---
EXAMINATION: MR brain/brain stem wo/w con DATE: 04/01/2024 09:18 INDICATION: Head injury. Memory loss. TECHNIQUE: Magnetic resonance imaging (MRI) of the brain and brainstem was performed without and with 15 mL MultiHance intravenous contrast. COMPARISON: None. FINDINGS: There are old infarcts in left frontal and parietal lobes with old blood products. There ar e old blood products in the ventricles, right frontal lobe, and left occipital lobe. There are scatte red areas of nonspecific increased T2-weighted signal intensity in the cerebral white matter, which i s within normal limits for the patient's age. There is no acute infarction or abnormal intracranial m ass lesion. There is ex vacuo dilatation of left lateral ventricle. There is a trace right mastoid ef fusion. There is mild mucosal thickening in the paranasal sinuses. The orbits are normal. IMPRESSION: 1. Old infarcts in left frontal and parietal lobes. Reviewed, dictated and finalized at location A.
== END 2024-04-01 08:20 | disposition home or self-care (01) ==
PROVIDERS: PCP Family Medicine; Visit Provider Family Medicine
DX: S09.90XA Unspecified injury of head, initial encounter (principal); Z86.73 Personal history of transient ischemic attack (TIA), and cerebral infarction without residual deficits
CPT/HCPCS: 70553; A9577

== ENCOUNTER 2024-08-25 14:50 | Outpatient (CLI) | payer MEDICARE, SELFPAY ==
[2024-08-25 15:34] LABS: Basophils Absolute Auto 0.05 K/mm3 (0.00-0.10); Basophils Percent Auto 0.5 % (0.0-1.0); Eosinophils Absolute Auto 0.09 K/mm3 (0.02-0.50); Eosinophils Percent Auto 0.9 % (1.0-6.0); Hematocrit 42.2 % (37.0-46.0); Hemoglobin 14.2 g/dL (12.4-15.3); Immature Granulocyte Absolute 0.05 K/mm3 (0.00-0.00); Immature Granulocyte Percent A 0.5 % (0.0-0.0); Lymphocytes Absolute Auto 1.93 K/mm3 (1.10-4.50); Lymphocytes Percent Auto 19.5 % (18.0-42.0); Mean Corpuscular HGB Conc 33.6 g/dL (32-36); Mean Corpuscular Hemoglobin 29.2 pg (27.0-31.0); Mean Corpuscular Volume 86.8 fL (78.0-102.0); Mean Platelet Volume 10.1 fl (8.7-11.0); Monocytes Absolute Auto 0.79 K/mm3 (0.10-0.90); Neutrophils Percent Auto 70.6 % (50.0-70.0); Platelet Count Result 235 K/mm3 (150-420); Red Blood Count 4.86 M/mm3 (4.70-6.10); Red Cell Distribution Width 13.1 % (11.6-14.4); White Blood Count 9.9 K/mm3 (4.8-10.8)
[2024-08-25 15:50] LABS: Hemoglobin A1C 6.2 % (<5.7)
[2024-08-25 16:08] LABS: Alanine Aminotransferase 23 U/L (16-63); Albumin Level 3.9 g/dL (3.4-5.0); Alkaline Phosphatase 95 U/L (46-116); Anion Gap 8 mmol/L (4-12); Aspartate Amino Transferase 14 U/L (15-37); Bilirubin,Total 0.6 mg/dL (0.00-1.00); Blood Urea Nitrogen 20 mg/dL (7-18); Carbon Dioxide 27 mmol/L (21-32); Chloride 106 mmol/L (98-108); Estimated Glomerular Filt Rate 39; Glucose 166 mg/dL (70-99); Osmolality Calculated 298 mOsm/kg (285-295); Potassium 4.4 mmol/L (3.5-5.1); Sodium 141 mmol/L (136-145); Total Protein 6.7 g/dL (6.4-8.2)
== END 2024-08-25 14:51 | disposition home or self-care (01) ==
PROVIDERS: PCP Family Medicine; Visit Provider Family Medicine
DX: E11.9 Type 2 diabetes mellitus without complications (principal)
CPT/HCPCS: 36415; 80053; 83036; 85025

== ENCOUNTER 2025-02-03 09:15 | Outpatient (CLI) | payer MEDICARE, SELFPAY ==
--- OUTSIDE RECORDS SUMMARY | 2025-02-03 09:21 | XMS_ITS ---
Author Organization [facility] Care Team Providers Care Security Sme Name Role Phone Natanael Higgins Unavailable Unavailable Allergies and adverse reactions No Known Allergies Care Team Name Role Address Phone Organization Dates Natanael Higgins PCP [address], [place], [address], [place] (Office): [facility] 04/28/2022 - 06/10/2022 Immunizations Immunization Status Vaccine Details Vaccine Code CodeSystem Date Notes Tetanus completed Td(adult) unspecified formulation Given intramuscularly 139 CVX created date: 04/04/2022 consent date: 04/03/2022 administer ed date: 04/03/2022 Given in [facility] ER after his fall, and laceration to R eyebrow. Mental Status Section Date Assessment Total Score Description 06/10/2022 BIMS 11 moderate cognit bassam impairment CAM 0 No delirium ind icated PHQ-9 02 minimal depress ion 04/20/2022 CAM 3 Delirium indica keith Problems Problem # Description Date of onset Resolved Date Code CodeSystem Concern Status 1 SYNCOPE AND COLLAPSE 04/28/[address] active 2 BENIGN PROSTATIC HYPERPLASIA WITHOUT LOWER URINARY TRACT SYMPTOMS 03/26/[address] active 3 CARDIOMYOPATHY, UNSPECIFIED 03/26/[address] active 4 CEREBRAL INFARCTION DUE TO UNSPECIFIED OCCLUSION OR STENOSIS OF LEFT MIDDLE CEREBRAL ARTERY 03/26/[address] active 5 DYSPHAGIA, OROPHARYNGEAL PHASE 03/26/[address] active 6 ENCEPHALOPATHY, UNSPECIFIED 03/26/[address] active 7 ESSENTIAL (PRIMARY) HYPERTENSION 03/26/[address] active 8 GASTROSTOMY STATUS 03/26/2022 826918234 SNOMED C T active 9 HYPERLIPIDEMIA, UNSPECIFIED 03/26/[address] active 10 MAJOR DEPRESSIVE DISORDER, SINGLE EPISODE, UNSPECIFIED 03/26/[address] active 11 NONTRAUMATIC SUBARACHNOID HEMORRHAGE, UNSPECIFIED 03/26/[address] active 12 PERSONAL HISTORY OF TRANSIENT ISCHEMIC ATTACK (TIA), AND CEREBRAL INFARCTION WITHOUT RESIDUAL DEFICITS 03/26/[address] active 13 REPEATED FALLS 03/26/[address] ac tive 14 TYPE 2 DIABETES MELLITUS WITHOUT COMPLICATIONS 03/26/[address] active 15 UNSPECIFIED SYSTOLIC (CONGESTIVE) HEART FAILURE 03/26/[address] active Reason for Referral No Reasons for Referral Entered Social History Social History Observation Description Start Date End Date Code Code System Current Smoking Status Tobacco smoking consumption unknown 605476997 SNOMED CT Sex Assigned At Male 1955 08258-9 [facility] Gender Identity Vital Signs Code Code System Vitals Name Values and Units Timing Information 8462-4 [facility] Blood Pressure-Diastolic Value=72 Un its=mmHg 06/10/2022 8480-6 [facility] Blood Pressure-Systolic Eiixb=523 Un its=mmHg 06/10/2022 79496-3 [facility] Pain Level Value=0.0 06/10/2022 9279-1 [facility] Respiratory Rate Value=18.0 Units=/m in 06/08/2022 52450-0 [facility] O2 % BldC Oximetry Value=98.0 Units= % 06/08/2022 8310-5 [facility] Body Temperature Value=97.9 Units= F 06/08/2022 8867-4 [facility] Heart rate Value=75.0 Units=/min 36599-7 [facility] Weight Ubsbf=216.0 Units=Lbs 01/2022 8302-2 [facility] Height Value=64.0 Units=Inches 04/03/2022
--- OUTSIDE RECORDS SUMMARY | 2025-02-03 09:21 | XMS_ITS ---
Author Organization Unknown Address [address] [place] [address] [phone] Phone Care Team Providers Care Residential Door Installer Name Role Phone ANDRESSA Lizarraga Attending Unavailable ROMÁN EMERY Primary Unavailable Immunization Immunization Date Status Additional Notes Code Code System Hep B, adult 03/08/2013 Completed 43 CVX Hep B, adult 07/07/2013 Completed 43 CVX Results Pharynx Study w Speech - Com pleted: 01/01/2025 11:28 LOINC: \TM00\\12PI\\DRAo\\BM09\ \MRHo\ [address] [address] ---------NAME--------- NUMBER SEX AGE ADMIT DISC. XRAY# F/C TYPE MAK LINDSEY [id number] M 69 01/01/25 01/01/25 60293 MB7 O/P DATE OF : 1955 M/R# [id number] PH#: [phone] RM \MRHx\ LOCATION: TRANSCRIBED: 01/01/25 16:07 Pharynx Study w Speech 14950 COMPLETED:01/01/25 11:28 JDF [id number] {REASON-ESO/UGI/SB: DYSPHAGIA PHYSICIAN: ALVAREZ R A D I O L O G Y R E P O R T CINE SWALLOW STUDY - WITH SPEECH PATHOLOGY Exam Date: 01/01/2025 09:52 AM Comparison: None History: DYSPHAGIA Technique: Thin barium, thick barium, pudding-consistency barium, honey-consistency barium, nectar-consistency barium, and barium with crackers were administered to the patient in succession by speech pathology. Deglutition was monitored under fluoroscopy in a lateral view and recorded on video. Fluoroscopy time: 1 minute 47 seconds, 13 fluoroscopic images. Findings: There was no evidence of delay in the initiation of swallowing. There was no evidence of laryngeal penetration or tracheal aspiration. There is cricopharyngeus muscle spasm with smooth impression on the posterior margin of the upper esophagus. All of the maxillary teeth are absent. There are multiple mandibular tooth implants. There are advanced cervical spine degenerative changes and postoperative changes of ACDF C3-C4. IMPRESSION: 1. No evidence of laryngeal penetration or aspiration. 2. Cricopharyngeus muscle spasm. 3. A full report will be forthcoming from speech pathology. NE PILOT \ITLo\ \UNDo\ \UNDx\ \ITLx\ Reviewed and Electronically Signed by: Ryan Gonsales MD Signed Date: 01/01/25 16:07 01/01/25.1610.JDF.to ROMÁN via fax Social History Type Status Start Date End Date Code Code Syst em Sex Male Hospital Discharge Instructions Should you have any questions prior to discharge, please contact a member of your healthcare team. If you have left the hospital and have any questions, please contact your primary care physician. Reason For Referral No Data Found Plan of Treatment Pharynx Esophagus Cine 01/01/2025 Encounters Encounter Diagnosis Start Date Code Code Sys tem Dysphagia, oropharyngeal phase 01/01/2025 SNOMED-CT Personal Care Team Section Performer Name Performer Role Active Date Inactive Da ROSALIA Nichols PCP - Primary care physician 2022-04-02 2022-09-10 RUPERT FRANCE PCP - Primary care physician
--- OUTSIDE RECORDS SUMMARY | 2025-02-03 09:21 | XMS_ITS ---
Author Organization Unknown Address [address] [place] [address] [phone] Phone Care Team Providers Care Ampoule Examiner Name Role Phone MARIE KELLEN Attending Unavailable ROMÁN EMERY Primary Unavailable Immunization Immunization Date Status Additional Notes Code Code System Hep B, adult 03/08/2013 Completed 43 CVX Hep B, adult 07/07/2013 Completed 43 CVX Social History Type Status Start Date End [...] Diagnosis Start Date Code Code Sys tem Essential hypertension 09/07/2024 [id number] [place] [facility] Personal Care Team Section Performer Name Performer Role Active Date Inactive ROSALIA Miranda PCP - Primary care physician 2022-04-02 2022-09-10 RUPERT FRANCE PCP - Primary care physician
--- OUTSIDE RECORDS SUMMARY | 2025-02-03 09:21 | XMS_ITS ---
Author Organization Unknown Address [address] [place] [address] [phone] Phone Care Team Providers Care Chief Substation Operator Name Role Phone QUICK JAMES Lizarraga Attending Unavailable ROMÁN EMERY Primary Unavailable [...] Code Code Sys tem Dysphagia, oropharyngeal phase 12/18/2024 SNOMED-CT Personal Care Team Section Performer Name Performer Role Active Date Inactive ROSALIA Miranda PCP - Primary care physician 2022-04-02 2022-09-10 RUPERT FRANEC PCP - Primary care physician
--- OUTSIDE RECORDS SUMMARY | 2025-02-03 09:21 | XMS_ITS ---
Author Organization Unknown Address [address] [place] [address] [phone] Phone Care Team Providers Care Glass Presser Name Role Phone DAVID TOUSSAINT Attending Unavailable ROMÁN EMERY Primary Unavailable Immunization Immunization Date Status Additional Notes Code Code System Hep B, adult 03/08/2013 Completed 43 CVX Hep B, adult 07/07/2013 Completed 43 CVX Results CBC W/ DIFF - Collect Date/T michelle: 09/09/2023 10:03 [facility] ID: [id number] [address] [place] [address], [phone] LOINC: 72730-3 Test Value Unit Reference Range Code Code System Flag WBC 11.0 10^3uL L=4.8 H=10.8 H RBC 4.53 10^6uL L=4.60 H=6.20 L HEMOGLOBIN 13.7 g/dL L=14.0 H=18.0 718-7 LOINC L HEMATOCRIT 41.0 VOL% L=42.0 H=52.0 4544-3 LOINC L MCV 90.5 fL L=80.0 H=94.0 MCH 30.2 pg L=27.0 H=32.0 MCHC 33.4 g/dL L=32.0 H=36.0 PLATELETS 242 10^3uL L=100 H=400 53983-5 LOINC RDW 12.6 % L=11.7 H=15.5 %GRAN 65.1 % L=40.0 H=70.0 54031-5 LOINC %LYMPH 22.8 % L=20.0 H=45.0 736-9 LOINC %MONO 9.6 % L=2.0 H=10.0 19530-3 LOINC %EOS 1.6 % L=0.0 H=6.0 713-8 LOINC %BASO 0.6 % L=0.0 H=3.0 706-2 LOINC #NEUT 7.2 10^3uL L=1.9 H=7.6 59101-7 LOINC #LYMPH 2.5 10^3uL L=0.9 H=4.9 76886-3 LOINC #MONO 1.1 10^3uL L=0.1 H=0.9 54092-3 LOINC H #EOS 0.2 10^3uL L=0.0 H=0.6 712-0 LOINC #BASO 0.07 10^3uL L=0.00 H=0.10 73640-4 LOINC #IM GRANS 0.0 10^3uL L=0.0 H=7.0 80291-0 LOINC %IM GRANS 0.3 % L=0.0 H=5.0 06250-7 LOINC %NRB 0.0 L=0.0 H=0.2 48298-0 LOINC #NRB 0.000 L=0.000 H=0.012 01199-6 LOINC MANUAL DIFF NOT INDICATED RBC MORPH NOT INDICATED COMPREHENSIVE METABOLIC PANE L - Collect Date/Time: 09/09/2023 10:03 [facility] ID: [id number] [address] [place], [place], [phone] LOINC: 84226-2 Test Value Unit Reference Range Code Code System Flag FASTING UNKNOWN BUN 22 mg/dL L=7 H=20 3094-0 LOINC H CREATININE 1.80 mg/dL L=0.66 H=1.25 2160-0 LOINC H GLUCOSE 135 mg/dL L=74 H=106 2345-7 LOINC H SODIUM 141 mmol/L L=132 H=144 2951-2 LOINC POTASSIUM 4.3 mmol/L L=3.5 H=5.1 2823-3 LOINC CHLORIDE 108 mmol/L L=98 H=107 2075-0 LOINC H CO2 26.0 mmol/L L=22.0 H=30.0 2027-9 LOINC ANION GAP 11 L=10 H=20 23733-6 LOINC OSMOLALITY 297 mOs/kG L=280 H=296 55774-0 LOINC H BUN/CREAT 12.2 3097-3 LOINC CALCIUM 9.3 mg/dL L=8.3 H=10.5 88396-4 LOINC AST 27 U/L L=15 H=46 1920-8 LOINC ALT 34 U/L L=9 H=72 1742-6 LOINC ALKALINE PHOS 82 U/L L=38 H=126 6768-6 LOINC TOTAL BILI 0.7 mg/dL L=0.2 H=1.3 1975-2 LOINC ALBUMIN 4.3 G/dL L=3.5 H=5.0 1751-7 LOINC TOTAL PROTEIN 7.3 g/L L=6.3 H=8.2 2885-2 LOINC A/G RATIO 1.4 91168-4 LOINC AGE 68 83820-1 LOINC eGFR NON-AFR 40 ml/min eGFR AFR AMER 48 ml/min LIPID PANEL - Collect Date/T michelle: 09/09/2023 10:03 [facility] ID: [id number] [address] [place], [place], [phone] LOINC: 77823-2 Test Value Unit Reference Range Code Code System Flag FASTING UNKNOWN CHOLESTEROL 101 mg/dL L=0 H=200 3-3 LOINC TRIGLYCERIDE 115 mg/dL L=0 H=150 2571-8 LOINC HDL 35 mg/dL L=40 H=60 5-9 LOINC L LDL 53 mg/dL 2088-1 LOINC Social History Type Status Start Date End [...] Diagnosis Start Date Code Code Sys tem Heart failure 09/09/2023 [id number] SNOMED-CT Personal Care Team Section Performer Name Performer Role Active Date Inactive Da ROSALIA Nichols PCP - Primary care physician 2022-04-02 2022-09-10 RUPERT FRANCE PCP - Primary care physician
[2025-02-03 09:31] LABS: Basophils Absolute Auto 0.05 K/mm3 (0.00-0.10); Basophils Percent Auto 0.5 % (0.0-1.0); Hemoglobin 13.9 g/dL (12.4-15.3); Immature Granulocyte Absolute 0.05 K/mm3 (0.00-0.00); Immature Granulocyte Percent A 0.5 % (0.0-0.0); Lymphocytes Absolute Auto 2.43 K/mm3 (1.10-4.50); Lymphocytes Percent Auto 24.4 % (18.0-42.0); Mean Corpuscular HGB Conc 33.1 g/dL (32-36); Mean Corpuscular Hemoglobin 29.4 pg (27.0-31.0); Mean Corpuscular Volume 88.8 fL (78.0-102.0); Mean Platelet Volume 9.6 fl (8.7-11.0); Monocytes Absolute Auto 1.07 K/mm3 (0.10-0.90); Monocytes Percent Auto 10.7 % (2.0-11.0); Neutrophils Absolute Auto 6.26 K/mm3 (1.70-7.20); Neutrophils Percent Auto 62.9 % (50.0-70.0); Platelet Count Result 226 K/mm3 (150-420); Red Blood Count 4.73 M/mm3 (4.70-6.10); Red Cell Distribution Width 13.1 % (11.6-14.4)
[2025-02-03 09:51] LABS: Alanine Aminotransferase 22 U/L (6-50); Albumin Level 4.2 g/dL (3.5-5.1); Alkaline Phosphatase 100 U/L (38-126); Anion Gap 4 mmol/L (4-12); Aspartate Amino Transferase 26 U/L (17-59); Bilirubin,Total 0.5 mg/dL (0.2-1.3); Blood Urea Nitrogen 21 mg/dL (9-20); Carbon Dioxide 27 mmol/L (22-30); Chloride 110 mmol/L (98-107); Estimated Glomerular Filt Rate 42; Glucose 115 mg/dL (65-110); Osmolality Calculated 296 mOsm/kg (285-295); Potassium 4.3 mmol/L (3.4-5.0); Sodium 141 mmol/L (137-145); Total Protein 6.7 g/dL (6.3-8.2)
[2025-02-03 10:31] LABS: Hemoglobin A1C 6.5 % (<5.7)
[2025-02-06 16:05] LABS: Cholesterol 108 mg/dL (0-200); HDL Direct 33 mg/dL; LDL Cholesterol Calculated 59 mg/dL (<130); Triglycerides 82 mg/dL (<150)
== END 2025-02-03 09:16 | disposition home or self-care (01) ==
PROVIDERS: PCP Family Medicine; Visit Provider Family Medicine
DX: I10 Essential (primary) hypertension (principal); E11.9 Type 2 diabetes mellitus without complications
CPT/HCPCS: 36415; 80053; 80061; 83036; 85025

== ENCOUNTER 2025-05-09 09:39 | Outpatient (CLI) | payer MEDICARE, SELFPAY ==
[2025-05-09 09:53] LABS: Hematocrit 40.7 % (37.0-46.0); Hemoglobin 13.3 g/dL (12.4-15.3); Mean Corpuscular HGB Conc 32.7 g/dL (32-36); Mean Corpuscular Hemoglobin 29.2 pg (27.0-31.0); Mean Corpuscular Volume 89.5 fL (78.0-102.0); Platelet Count Result 216 K/mm3 (150-420); Red Blood Count 4.55 M/mm3 (4.70-6.10); White Blood Count 11.7 K/mm3 (4.8-10.8)
[2025-05-09 10:29] LABS: Alanine Aminotransferase 23 U/L (6-50); Albumin Level 4.1 g/dL (3.5-5.1); Alkaline Phosphatase 82 U/L (38-126); Anion Gap 11 mmol/L (4-12); Aspartate Amino Transferase 25 U/L (17-59); Bilirubin,Total 0.6 mg/dL (0.2-1.3); Blood Urea Nitrogen 20 mg/dL (9-20); Calcium 9.5 mg/dL (8.4-10.2); Carbon Dioxide 25 mmol/L (22-30); Chloride 108 mmol/L (98-107); Estimated Glomerular Filt Rate 42; Glucose 170 mg/dL (65-110); Osmolality Calculated 304 mOsm/kg (285-295); Potassium 4.3 mmol/L (3.4-5.0); Sodium 144 mmol/L (137-145); Total Protein 6.9 g/dL (6.3-8.2)
--- OUTSIDE RECORDS SUMMARY | 2025-05-09 10:38 | XMS_ITS ---
Author Organization [facility] Care Team Providers Care Magazine Filler Name Role Phone Natanael Higgins Unavailable Unavailable Allergies and adverse reactions No Known Allergies Care Team Name Role Address Phone Organization Dates Natanael Higgins PCP [address], [place], [address], [place] (Office): [facility] 04/28/2022 - 06/10/2022 Immunizations Immunization Status [...] Concern Status 1 SYNCOPE AND COLLAPSE 04/28/[address] active 2 BENIGN PROSTATIC HYPERPLASIA WITHOUT LOWER URINARY TRACT SYMPTOMS 03/26/[address] active 3 CARDIOMYOPATHY, UNSPECIFIED 03/26/[address] active 4 CEREBRAL INFARCTION DUE TO UNSPECIFIED OCCLUSION OR STENOSIS OF LEFT MIDDLE CEREBRAL ARTERY 03/26/[address] active 5 DYSPHAGIA, OROPHARYNGEAL PHASE 03/26/[address] active 6 ENCEPHALOPATHY, UNSPECIFIED 03/26/[address] active 7 ESSENTIAL (PRIMARY) HYPERTENSION 03/26/[address] active 8 GASTROSTOMY STATUS 03/26/2022 452921133 SNOMED C T active 9 HYPERLIPIDEMIA, UNSPECIFIED 03/26/[address] active 10 MAJOR DEPRESSIVE DISORDER, SINGLE EPISODE, UNSPECIFIED 03/26/[address] active 11 NONTRAUMATIC SUBARACHNOID HEMORRHAGE, UNSPECIFIED 03/26/[address] active 12 PERSONAL HISTORY OF TRANSIENT ISCHEMIC ATTACK (TIA), AND CEREBRAL INFARCTION WITHOUT RESIDUAL DEFICITS 03/26/[address] active 13 REPEATED FALLS 03/26/[address] ac tive 14 TYPE 2 DIABETES MELLITUS WITHOUT COMPLICATIONS 03/26/[address] active 15 UNSPECIFIED SYSTOLIC (CONGESTIVE) HEART FAILURE 03/26/[address] active Reason for Referral No Reasons for Referral Entered Social History Social History Observation Description Start Date End Date Code Code System Current Smoking Status Tobacco smoking consumption unknown 202456700 SNOMED CT Sex Assigned At Male 1955 00317-0 [facility] Gender Identity Sexual Orientation Vital Signs Code Code System Vitals Name Values and Units Timing Information 8462-4 [facility] Blood Pressure-Diastolic Value=72 Un its=mmHg 06/10/2022 8480-6 LOINC Blood Pressure-Systolic Eqsmp=844 Un its=mmHg 06/10/2022 62594-5 LOINC Pain Level Value=0.0 06/10/2022 9279-1 LOINC Respiratory Rate Value=18.0 Units=/m in 06/08/2022 13851-9 LOINC O2 % BldC Oximetry Value=98.0 Units= % 06/08/2022 8310-5 [facility] Body Temperature Value=97.9 Units= F 06/08/2022 8867-4 LOINC Heart rate Value=75.0 Units=/min 88377-5 LOINC Weight Hefvj=723.0 Units=Lbs 01/2022 8302-2 LOINC Height Value=64.0 Units=Inches 04/03/2022
[2025-05-09 12:23] LABS: MALB Creatinine Ratio 14.0 mg/g (0-30)
[2025-05-09 12:28] LABS: Add Urine Microscopic? NO; Appearance Urine Clear (Clear); Glucose Urine UA 3+ (Negative); Leukocyte Esterase Ur Negative (Negative); Nitrate Urine Negative (Negative); Specific Grav Ur 1.010 (1.010-1.020)
[2025-05-09 16:03] LABS: Immature Granulocyte Percent A 0.5 % (0.0-0.0); Lymphocytes Absolute Auto 2.51 K/mm3 (1.10-4.50); Nucleated Red Blood Cells Absolute Auto 0.00 K/mm3 (0.00-0.00); Nucleated Red Blood Cells Perc 0.0 % (0-0.0)
[2025-05-11 09:16] LABS: Hemoglobin A1C 6.8 % (<5.7)
== END 2025-05-09 09:40 | disposition home or self-care (01) ==
LOC: CHSLAB 09:40
PROVIDERS: PCP Family Medicine; Visit Provider Family Medicine
DX: I10 Essential (primary) hypertension (principal); E11.65 Type 2 diabetes mellitus with hyperglycemia
CPT/HCPCS: 36415; 80053; 81003; 82043; 83036; 85025; 85027

== ENCOUNTER 2025-08-17 14:16 | Outpatient (CLI) | payer MEDICARE, SELFPAY ==
--- OUTSIDE RECORDS SUMMARY | 2025-08-17 14:20 | XMS_ITS | Encounter Summary ---
Author Organization [facility] Address [address] [place] [address] Care Team Providers Care [employer] Consultant Name Role Phone Ravinder Espinosa MD Primary Care Provider [phone] Norma Ford MD Unavailable [phone] Cheikh Yusuf MD Primary Care Provider [phone] Krystyna Damon MD Unavailable Unavailabl e Art Sandoval MD Unavailable [phone] Natanael Del Valle MD Unavailable [phone] Stanislaw Cisneros MD Unavailable Zuleyma Amezcua MD Unavailable Encounter Details Date Type Department Care Team (Late st Contact Info) Description 11/10/2021 Hospital Follow-up Call [facility] ICU [address] [place] [address] Joseline Briones, RN Social History Tobacco Use Types Packs/Day Years Used Date Smoking Tobacco: Smoker, Current Status Unknown Cigarettes Smokeless Tobacco: Never Sex and Gender Information Value Date Recorded Sex Assigned at Male 09/07/2024 12:04 PM DE ALCOHOLIZER Legal Sex Male 5:50 PM DE ALCOHOLIZER Gender Identity Male 11/25/2021 6:07 AM CDT Sexual Orientation Straight 11/25/2021 6: 07 AM CDT COVID-19 Exposure Response Date Recorded In the last 10 days, have ok u been in contact with someone who was confirmed or suspected to have Coronavirus/COVID-19? No / Unsure 10/30/2021 8:31 AM DE ALCOHOLIZER documented as of this encounter Functional Status * RETIRED Are you deaf or do you have serious difficulty hearing Answer Date of Assessment Author Status No 10/30/2021 8:32 AM DE ALCOHOLIZER Activ e * RETIRED Are you blind or do you have serious difficulty seeing, even when wearing glasses? Answer Date of Assessment Author Status No 10/30/2021 8:32 AM DE ALCOHOLIZER Activ e * Do you have serious difficulty walking or climbing stairs? Answer Date of Assessment Author Status No 10/30/2021 8:32 AM Guilherme Campos RN Active * Do you have difficulty dressing or bathing? Answer Date of Assessment Author Status No 10/30/2021 8:32 AM Guilherme Campos RN Active * Because of a physical, mental, or emotional condition, do you have difficulty doing errands alone such as visiting a doctor's office or shopping? Answer Date of Assessment Author Status No 10/30/2021 8:32 AM Guilherme Campos RN Active documented as of this encounter Mental Status * Because of a physical, mental, or emotional condition, do you have serious difficulty concentrating, remembering, or making decisions? Answer Entry Date Author Status No 10/30/2021 8:32 AM Guilherme Campos RN Active documented in this encounter Progress Notes * Joseline Briones RN - 11/10/2021 3:36 PM CDT Message left documented in this encounter Plan of Treatment Upcoming Encounters Date Type Department Care Team (Late st Contact Info) Description 10/18/2025 10:30 AM DE ALCOHOLIZER Appointment [facility] [address] [place] [address] Zuleyma Amezcua MD [address] [place] [address] 11/07/2025 2:45 PM CDT Office Visit [facility] [place] [phone] Zuleyma Amezcua MD [address] [place] [address] documented as of this encounter Goals Goal Patient Goal Type Associated Problems Recent Progress Patient-Stated? Author Family - family caregiver with be involved in care transitions and discharge planning General Angeles Kuhn RN documented as of this encounter Visit Diagnoses Not on filedocumented in this encounter Additional Health Concerns Infection Onset Date Last Indicated Resolved Time COVID-19 Rule Out 03/25/2022 03/25/2022 03/25/2022 3:23 PM CDT COVID-19 Rule Out 04/28/2022 04/28/2022 04/28/2022 3:47 PM CDT documented as of this encounter Care Teams Oracle Hr[employer] Consultant Relationship Specialty Start Date End Date Ravinder Espinosa MD [address] [place] [phone] PCP - General FAMILY PRACTICE 11/28/18 11/26/21 Cheikh Yusuf MD [address] [place] [id number] PCP - General FAMILY PRACTICE 11/27/21 Norma Ford MD [address] [place] [phone] Consulting Physician VASCULAR SURGERY 11/28/18 11/07/23 Krystyna Damon MD [address] [place] [address] Consulting Physician CARDIOVASCULAR DISEASE 12/05/21 Art Sandoval MD [address] [place] [address] Consulting Physician Vascular Neurology 02/24/22 Natanael Del Valle MD [address] [place] [phone] EP Distribution Field Engineer CLINICAL CARDIAC ELECTROPHYSIOLOGY 03/24/22 Stanislaw Cisneros MD [address] [place] [phone] Consulting Physician INTERNAL MEDICINE 11/06/22 5 Zuleyma Amezcua MD [address] [place] [address] Consulting Physician CARDIOVASCULAR DISEASE 11/08/23 documented as of this encounter
--- OUTSIDE RECORDS SUMMARY | 2025-08-17 14:20 | XMS_ITS | Clinical Summary ---
Author Organization [facility] Address [address] [place] [address] Care Team Providers Care Assistant Track And Field Coach Name Role Phone Cheikh Yusuf MD Primary Care Provider [phone] Natanael Del Valle MD Unavailable [phone] Kellen Marie MD Unavailable Allergies No known active allergies Medications atorvastatin 80 MG tablet 1 tablet (80 mg total) by Per G Tube route nightly at bedtime. 2 Active aspirin 81 MG chewable tablet 1 tablet (81 mg total) by Per G Tube route daily. 2 Active finasteride (PROSCAR) 5 MG tablet Take 1 tablet (5 mg total) by mouth daily for 30 days. 30 tablet 2 Active JANUVIA 50 MG tablet 2 Active carvedilol (COREG) 3.125 MG tablet Take 1 tablet (3.125 mg total) by mouth 2 (two) times a day. Hold for SBP < 120 3 Active omeprazole (PRILOSEC) 20 MG capsule Take 1 capsule (20 mg total) by mouth nightly at bedtime. 2 Active sertraline (ZOLOFT) 100 MG tablet Take 1 tablet (100 mg total) by mouth daily. 2 Active fluocinonide (LIDEX) 0.05 % external solution APPLY SOLUTION TOPICALLY TO AFFECTED AREA TWICE DAILY 3 Active JARDIANCE 10 MG tablet Take 1 tablet (10 mg total) by mouth every morning. FOR 14 DAYS 3 Active cilostazol (PLETAL) 100 MG tabletIndicatio ns:PAD (peripheral artery disease) Take 1 tablet by mouth twice daily 180 tablet 3 5 Active rivaroxaban (XARELTO) 2.5 MG tablet Take 1 tablet (2.5 mg total) by mouth 2 (two) times daily. 180 tablet 6 5 Active Active Problems Problem Noted Date Diagnosed Date PAD (peripheral artery disease) 01/05/2023 Smoker 01/05/2023 Hemiparesis of dominant side due to recent cerebrovascular accident (CVA) 06/23/2022 Cognitive deficit as late ef fect of cerebrovascular accident (CVA) 06/23/2022 Syncope 04/20/2022 Oropharyngeal dysphagia 03/18/2022 SAH (subarachnoid hemorrhage) 03/10/2022 Ruled out for myocardial infarction 03/10/2022 Acute encephalopathy 03/10/2022 H/O ischemic left MCA stroke 03/10/2022 Heart failure with reduced ejection fraction Cardiomyopathy 11/13/2021 Asymptomatic stenosis of right carotid artery Acute ischemic left MCA stroke 10/30/2021 Received intravenous tissue plasminogen activator (tPA) in emergency department 10/30/2021 Type 2 diabetes mellitus, wi thout long-term current use of insulin H/O neck surgery HLD (hyperlipidemia) HTN (hypertension) Encounters Date Type Department Care Team Description 06/12/2025 9:35 AM CDT - 06/12/2025 11:59 PM CDT Hospital Encounter [place] [facility] [address] [place] [address] Kellen Marie MD Discharge Disposition: Home or Self Care (Routine Discharge) 06/12/2025 Travel from Last 3 Months Immunizations Immunization Administration Dates Next Due Hepatitis B (Generic: Adult) 07/07/2013,03/08/20 13 Family History Medical History Relation Comments Diabetes Father Lung Cancer Father Diabetes Mother Relation Status Comments Father Maternal Grandfather Maternal Grandmother Mother Paternal Grandfather Paternal Grandmother Social History Tobacco Use Types Packs/Day Years Used Date Smoking Tobacco: Every Day Cigarettes 2 50 Smokeless Tobacco: Never Tobacco Cessation:Ready to Q uit: Not Asked; Counseling Given: Not Answered Alcohol Use Standard Drinks/Week Comments Not Currently 1.7 (1 standard drink = 0.6 oz p ure alcohol) PHQ-2 Answer Date Recorded PHQ-2 Score - If the patient scores above 3, please move on to questions 3-9 0 06/23/2022 Sex and Gender Information Value Date Recorded Sex Assigned at Male 09/07/2024 12:04 PM LEARNING AND DEVELOPMENT ASSOCIATE Legal Sex Male 5:50 PM LEARNING AND DEVELOPMENT ASSOCIATE Gender Identity Male 11/25/2021 6:07 AM CDT Sexual Orientation Straight 11/25/2021 6: 07 AM CDT 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 Not on file Not on file Not on letty e Last Filed Vital Signs Vital Sign Reading Time Taken Comments Blood Pressure 125/62 04/16/2025 3:46 PM CDT Pulse 72 04/16/2025 3:46 PM CDT Temperature 36.8 C (98.2 F) 04/28/2022 11:00 AM CDT Respiratory Rate 12 04/16/2025 3:46 PM CDT Oxygen Saturation 98% 04/16/2025 3:46 PM CDT Inhaled Oxygen Concentration - - Weight 78.9 kg (174 lb) 04/16/2025 3:46 PM CDT Height 167.6 cm (5' 6) 04/16/2025 3:46 PM CDT Body Mass Index 28.08 04/16/2025 3:46 PM CDT Plan of Treatment Upcoming Encounters Date Type Department Care Team (Late st Contact Info) Description 10/18/2025 10:30 AM LEARNING AND DEVELOPMENT ASSOCIATE Appointment [facility] [address] [place] [address] Kellen Marie MD [address] [place] [address] 11/07/2025 2:45 PM CDT Office Visit [facility] [address] [place] [phone] Kellen Marie MD [address] [place] [address] Health Maintenance Due Date Last Done Comments ASCVD Statin 1955 Colorectal Cancer Screening Colonoscopy (10 Years) 1955 Kidney Health Evaluation 1955 Diabetes: Retinopathy Eye Exam 1972 Hepatitis C 1972 Pneumococcal Vaccine: 50+ Years (1 of 2 - PCV) 1973 Lung Cancer Screening 2004 Zoster Vaccines (1 of 2) 2004 RSV Immunization or 60+ Years (1 - Risk 60-74 years 1-dose series) 2014 Annual Medicare Wellness Visit 2019 DTaP, Tdap and Td Vaccines (1 - Tdap) 04/04/2022 04/03/2022 ASCVD LDL 09/09/2024 09/09/2023, 07/2 , 10/30/2021 Lipid Panel 09/09/2024 09/09/2023, 07/2 , 10/30/2021 Hemoglobin A1C 02/22/2025 08/25/2024, 07/2 , 10/30/2021 COVID-19 Vaccine ( season) 2025 Influenza Adult (#1) 2025 AAA SCREENING Completed 06/12/2025, 06/0 12/2022, 03/03/2022, Additional history exists Hepatitis A Vaccines Aged Out No long er eligible based on patient's age to complete this topic Meningococcal B Vaccine Aged Out No l onger eligible based on patient's age to complete this topic Meningococcal Vaccine Aged Out No artem shilpa eligible based on patient's age to complete this topic RSV Immunizations Under 20 Months Aged Out No longer eligible based on patient's age to complete this topic Goals Goal Patient Goal Type Associated Problems Recent Progress Patient-Stated? Author Family - family caregiver with be involved in care transitions and discharge planning General No Angeles Marley, seo assistant - family caregiver with be involved in care transitions and discharge planning General No Katie Wilson, RN Medical Devices Implanted Type Area Store Management Trainee Device Identifier Shelf Expiration Date Model / Serial / Lot George Xact Carotid Stent-04/22/2022 Implanted:04/22 by Emily Gooden MD (Quantity not on file) Stent Carotid GEORGE VASCULAR 02/19/2025 [id number] Tube 24fr Balloon Replacement Bolster Standard Profile Gastrostomy Endovive Straight - [id number] Implanted:Qty: 1 on 03/17/2022 by Tae Clark MD at [facility] Tube Implant [employer] VIJAY [id number] 12/20/2022 [id number] / / [id number] Procedures Procedure Name Priority Date/Time Associated Diagnosis Comments CTA AORTO ILIOFEM RUNOFF Routine 06/12/2025 10:14 AM CDT PAD (peripheral artery disease) Essential (primary) hypertension Coronary artery disease involving [place] coronary artery of [place] heart without angina pectoris Carotid stenosis, asymptomatic, bilateral CREATININE STAT 06/12/2025 9:42 AM CDT HEMOGLOBIN, GLYCOSYLATED Routine 08/25/2024 LIPID PANEL Routine 09/09/2023 Coronary artery disease involving [place] coronary artery of [place] heart without angina pectoris Mixed hyperlipidemia from Last 3 Months or Most Recently Relevant to Health Maintenance Results * CTA AORTO ILIOFEM RUNOFF (06/12/2025 10:14 AM CDT) Anatomical Region Laterality Modality Abdomen, Pelvis, Extremity Compu keith Tomography 06/14/2025 10:5 8 AM CDT Impressions 06/14/2025 11:05 AM CDT IMPRESSION: No change from 01/25/2023 CTA. Mild aortic stenosis. 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 Chronic total occluded bilateral SFA. Bilateral 3 artery runoff provided by collateral circulation. Referred By: KELLEN MARIE Interpreted By: Kei Livingston MD, 06/14/2025 10:58 AM Narrative 06/14/2025 11:05 AM CDT [address] [place] [address] Examination: CTA AORTO ILIOFEM RUNOFF Exam time: 06/12/2025 9:44 AM Indication: Claudication Peripheral artery disease Peripheral vascular disease Stricture of arteries in bilateral legs Embolization of arteries in bilateral legs Technique: Images were obtained through the abdomen, pelvis and bilateral lower extremities precontrast. Images were repeated during IV contrast administration of 100 cc of Isovue-370 the indwelling IV. Axial and coronal images were reviewed. In addition 3-D volume rendered and MIP images were obtained on the independent [employer] workstation. A dose lowering technique was used for this procedure, which may include, but is not limited to, dose reduction technique, automated exposure control, iterative reconstruction, ALARA (As Low As Reasonably Achievable), or Image Gently techniques Comparison is 01/25/2023 CTA FINDINGS: Aorta without dissection or aneurysm. Mild stenosis in the aorta due to plaque. Patent celiac artery with mild stenosis at the origin. Patent superior mesenteric artery. Bilateral main renal arteries patent with mild stenosis at the origin. Accessory main renal arteries seen. The inferior mesenteric artery is severely stenotic at the origin. Occluded right common iliac artery. Reconstitution of the stenotic right external iliac artery. Stenotic right common femoral artery. Occluded right superficial femoral artery. Deep femoral artery a muscle branches provides circulation below the right knee. The right distal SFA/popliteal artery is recirculated. The right popliteal trifurcation is a normal 3 artery runoff. On the left, mild stenotic common iliac artery and external iliac artery. Heavily stenotic left common femoral artery. Occluded left SFA. Deep femoral artery and muscle branches provides flow below the left knee. The left distal SFA and the popliteal artery reconstituted. The left popliteal trifurcation is patent with a 3 artery runoff. No lung mass or effusions or pneumonia. No liver mass. No splenic mass. Gallstone. No pancreatitis. No adrenal or renal mass or obstruction. No GI tract obstruction. Colonic diverticulosis. No appendicitis or diverticulitis. No bladder stone or thickening. Coarse calcified calcifications of the enlarged prostate. No adenopathy. No ascites. No free air. No acute osseous abnormality. Degenerative arthritis and spondylosis. Procedure Note Kei Livingston MD - 06/14/[address] [place] [address] Examination: CTA AORTO ILIOFEM RUNOFF Exam time: 06/12/2025 9:44 AM Indication: Claudication Peripheral artery disease Peripheral vascular disease Stricture of arteries in bilateral legs Embolization of arteries in bilateral legs Technique: Images were obtained through the abdomen, pelvis and bilaterallower extremities precontrast. Images were repeated during IV contrastadministration of 100 cc of Isovue-370 the indwelling IV. Axial andcoronal images were reviewed. In addition 3-D volume rendered and MIPimages were obtained on the independent [employer] workstation. A doselowering technique was used for this procedure, which may include, but isnot limited to, dose reduction technique, automated exposure control,iterative reconstruction, ALARA (As Low As Reasonably Achievable), orImage Gently techniques Comparison is 01/25/2023 CTA FINDINGS: Aorta without dissection or aneurysm. Mild stenosis in the aorta due toplaque. Patent celiac artery with mild stenosis at the origin. Patentsuperior mesenteric artery. Bilateral main renal arteries patent withmild stenosis at the origin. Accessory main renal arteries seen. Theinferior mesenteric artery is severely stenotic at the origin. Occluded right common iliac artery. Reconstitution of the stenotic rightexternal iliac artery. Stenotic right common femoral artery. Occludedright superficial femoral artery. Deep femoral artery a muscle branchesprovides circulation below the right knee. The right distal SFA/poplitealartery is recirculated. The right popliteal trifurcation is a normal 3artery runoff. On the left, mild stenotic common iliac artery andexternal iliac artery. Heavily stenotic left common femoral artery.Occluded left SFA. Deep femoral artery and muscle branches provides flowbelow the left knee. The left distal SFA and the popliteal arteryreconstituted. The left popliteal trifurcation is patent with a 3 arteryrunoff. No lung mass or effusions or pneumonia. No liver mass. No splenic mass.Gallstone. No pancreatitis. No adrenal or renal mass or obstruction. NoGI tract obstruction. Colonic diverticulosis. No appendicitis ordiverticulitis. No bladder stone or thickening. Coarse calcifiedcalcifications of the enlarged prostate. No adenopathy. No ascites. Nofree air. No acute osseous abnormality. Degenerative arthritis andspondylosis. IMPRESSION: No change from 01/25/2023 CTA. Mild aortic stenosis. Chronic total occlusionright common iliac artery. Chronic total occluded bilateral SFA. Bilateral3 artery runoff provided by collateral circulation. Referred By: KELLEN MARIE Interpreted By: Kei Livingston MD, 06/14/2025 10:58 AM us Kellen Marie MD CT Final Result * (ABNORMAL) CREATININE (06/12/2025 9:42 AM CDT) CREATININE S/P/B 1.81(H) 0.70 - 1.30 MG/DL 06/12/2025 9:59 AM CDT [facility] GFR ESTIMATE 40(L) >89 ML/MIN/1. 73 M2 06/12/2025 9:59 AM CDT [facility] GFR NOTES GFR REFERENCE S: 06/12/2025 9:59 AM CDT [facility] Comment: THE ESTIMATED GFR IS CALCULATED USING THE 2020 CKD-EPI EQUATION. THE FOLLOWING CATEGORIES FOR GRADING RENAL FUNCTION ARE RECOMMENDED BY THE INTERNATIONAL SOCIETY OF NEPHROLOGY (KDIGO 2012 CLINICAL PRACTICE GUIDELINE). G1,NORMAL OR HIGH: >89 ml/min/1.73 m2 G2,MILDLY DECREASED: 60-89 ml/min/1.73 m2 G3A,MILDLY TO MODERATELY DECREASED: 45-59 ml/min/1.73 m2 G3B,MODERATELY TO SEVERELY DECREASED: 30-44 ml/min/1.73 m2 G4,SEVERELY DECREASED: 15-29 ml/min/1.73 m2 G5,KIDNEY FAILURE: <15 ml/min/1.73 m2 06/12/2025 9:42 AM CDT us Kellen Marie MD LABORATORY Final Result [facility] [address] [place] [address], * HEMOGLOBIN, GLYCOSYLATED (08/25/2024) HGB A1C 6.2 % Narrative Resulting Agency Comment [facility] us Cheikh Yusuf MD LABORATORY Final Result * LIPID PANEL (09/09/2023) CHOLESTEROL 101 HDL 35 TRIGLYCERIDES 115 LDL (CALCULATED) 53 09/09/2023 Krystyna Damon MD LABORATORY Final Resul t from Last 3 Months or Most Recently Relevant to Health Maintenance Insurance [employer] MEDICARE Advance Directives Documents on File Type Date Recorded Patient Choke Setter Expl anation Advance Directives and Living Will 04/22/2022 12:19 PM 03/06/2011 POA PROPER TY Advance Directives and Living Will 04/22/2022 12:19 PM 11/18/2021 DNR Advance Directives and Living Will 04/20/2022 4:35 PM 11/17/21 DNR Advance Directives and Living Will 03/30/2022 3:11 PM 11/17/21 POA * DNR (Latest Code Status on File) Date Activated Date Inactivated Comments 04/22/2022 7:03 PM 04/28/2022 7:11 PM * Full Code Date Activated Date Inactivated Comments 04/22/2022 6:49 PM 04/22/2022 7:03 PM * DNR Date Activated Date Inactivated Comments 04/20/2022 9:20 PM 04/22/2022 6:49 PM * Full Code Date Activated Date Inactivated Comments 03/04/2022 1:43 AM 03/26/2022 11:26 AM * Full Code Date Activated Date Inactivated Comments 10/31/2021 3:28 PM 11/09/2021 3:27 PM Care Teams Assistant Track And Field Coach Relationship Specialty Start Date End Date Cheikh Yusuf MD [address] [place] [address] PCP - General FAMILY PRACTICE 11/27/21 Natanael Del Valle MD [address] [place] [address] EP Quality Control Tester CLINICAL CARDIAC ELECTROPHYSIOLOGY 03/24/22 Kellen Marie MD [address] [place] [address] Consulting Physician CARDIOVASCULAR DISEASE 11/08/23
[2025-08-17 14:50] LABS: Hematocrit 39.6 % (37.0-46.0); Hemoglobin 13.1 g/dL (12.4-15.3); Immature Granulocyte Percent A 0.6 % (0.0-0.0); Lymphocytes Absolute Auto 1.40 K/mm3 (1.10-4.50); Mean Corpuscular HGB Conc 33.1 g/dL (32-36); Mean Corpuscular Hemoglobin 29.2 pg (27.0-31.0); Mean Corpuscular Volume 88.4 fL (78.0-102.0); Nucleated Red Blood Cells Absolute Auto 0.00 K/mm3 (0.00-0.00); Nucleated Red Blood Cells Perc 0.0 % (0-0.0); Platelet Count Result 233 K/mm3 (150-420); Red Blood Count 4.48 M/mm3 (4.70-6.10); White Blood Count 8.7 K/mm3 (4.8-10.8)
[2025-08-17 15:07] LABS: Hemoglobin A1C 5.9 % (<5.7)
[2025-08-17 15:25] LABS: Alanine Aminotransferase 23 U/L (6-50); Albumin Level 4.2 g/dL (3.5-5.1); Alkaline Phosphatase 89 U/L (38-126); Anion Gap 11 mmol/L (4-12); Aspartate Amino Transferase 24 U/L (17-59); Bilirubin,Total 0.5 mg/dL (0.2-1.3); Blood Urea Nitrogen 18 mg/dL (9-20); Calcium 9.3 mg/dL (8.4-10.2); Carbon Dioxide 20 mmol/L (22-30); Chloride 112 mmol/L (98-107); Estimated Glomerular Filt Rate 46; Glucose 175 mg/dL (65-110); Osmolality Calculated 301 mOsm/kg (285-295); Potassium 4.0 mmol/L (3.4-5.0); Sodium 143 mmol/L (137-145); Total Protein 6.5 g/dL (6.3-8.2)
== END 2025-08-17 14:17 | disposition home or self-care (01) ==
LOC: CHSLAB 14:18
PROVIDERS: PCP Family Medicine; Visit Provider Family Medicine
DX: E11.9 Type 2 diabetes mellitus without complications (principal)
CPT/HCPCS: 36415; 80053; 83036; 85025